=== PATIENT | male | born 1945 | race Caucasian/White ===

== ENCOUNTER 2017-01-18 11:08 | Outpatient (CLI) | payer MEDICARE, OTHER ==
[~2017-01-18] VITALS: Ht 172.7 cm; Wt 113.6 kg
--- NOTE | ~2017-01-18 | HEMODYNAMI ---
PATIENT:MICKEY TOMLINSON MEDICAL RECORD: [id number] : 49 LOCATION:[facility] ADMISSION DATE: 01/18/17 Generatedon:01/18/201715:44 Patient name: MICKEY TOMLINSON Patient #: [id number] SSN: [id number] : 1945 Date of study: 01/18/2017 Page: Of Hemodynamic Procedure Report Patient Data Patient Demographics Procedure consent was obtained First Name: MICKEY Gender: Male Last Name: BUSHRA : 1945 Patient #: [id number] Age: 71 year(s) Race: SSN: [id number] Additional ID: [id number] Contact details [address]: [address] [place] [address] State: [place] City: [place] Zip code: [address] Past Medical History Allergies Allergen Reaction Date Comments Reported Other allergy 01/18/2017 [facility] Admission Admission Data Admission Date: 01/18/2017 Admission Time: 11:08 Arrival Date: 01/18/2017 Arrival Time: 13:30 Admit Source: Other Insurance Payor: Medicare Height (in.): 68 BSA: 2.3 (m2) Height (cm.): 172.72 BMI: 40.14 (kg/m2) Weight (lbs.): 264 Weight (kg.): 119.75 Lab Results Lab Result Date: 01/18/2017 Lab Result Time: 0:00 Biochemistry Name Units Result Min Max BUN mg/dl 23 --(----)-* 7 18 Creatinine mg/dl 1.4 --(----)*- 0.6 1.3 CBC Name Units Result Min Max Hemoglobin g/dl 13.5 --(*---)-- 13.5 17.5 Procedure Procedure Types Cath Procedure Diagnostic Procedure LHC LHC w/Coronaries Miscellaneous Procedures Moderate Sedation up to 30 minutes Procedure Description Procedure Date Procedure Date: 01/18/2017 Procedure Start Time: 15:28 Procedure End Time: 15:43 Procedure Staff Name Function Zheng Coppola MD Performing Physician Viridiana Talley RT Scrub Desi Arreguin RN Nurse Angélica Del Valle RT Monitor Indication Abnormal stress Echo Procedure Data Cath Procedure Fluoroscopy Diagnostic fluoroscopy Total fluoroscopy Time: 3.3 time: 3.3 min min Diagnostic fluoroscopy Total fluoroscopy dose: 806 dose: 806 mGy mGy Contrast Material Contrast Material Type Amount (ml) Isovue 300 127 Entry Location Entry Primary Successful Side Size Upsize Upsize Entry Closure Succes sful Closure Location (Fr) 1 (Fr) 2 (Fr) Remarks Device Remarks Femoral Right 5 Fr Exoseal artery Estimated blood loss: 5 ml Diagnostic catheters Device Type Used For End Catheter Placement Cordis 5Fr JL 4.0 Left Coronary Catheter (MP) Angiography Cordis 5Fr 3DRC Catheter Right Coronary (MP) Angiography Diagnostic Infinity 5Fr Right Coronary AR MOD Catheter Angiography Cordis 5Fr Pigtail LV Angiography Catheter (MP) Procedure Complications No complications Procedure Medications Medication Administration Route Dosage Oxygen NC 2 l/min Heparin Flush Bag added to field 2 bags (1000units/500ml NS) Lidocaine 2% added to field 20 Fentanyl I.V. 50 mcg Versed I.V. 1 mg Fentanyl I.V. 50 mcg Versed I.V. 1 mg Hemodynamics Rest BSA: 2.3 (m2) HGB: 13.5 (g/dl) O2 Consumption: Estimated: 257.57 (ml/min) O2 Con sumption indexed: Estimated:111.99 (ml/min/m) Heart Rate: 60 (bpm) Pressure Samples Time Site Value (mmHg) Purpose Heart Use Rate(bpm) 15:37 LV 137/-28,3 Snapshot 61 15:38 AO 150/70(102) Pullback 61 15:38 LV 136/14,19 Pullback 61 Gradients Valve Time Site 1 Site 2 Mean SEP/DFP Peak To Heart Use (mmHg) (sec/min) Peak Rate (mmHg) (bpm) Aortic 15:38 LV AO 0 4 0 61 136/14,19 150/70(102) Calculations Valve P-P Mean Valve Index Valve Source Name Gradient Area Flow (cm2) Aortic 0 0 0 0 Snapshots Pre Cath Intra NCS Post Cath Vital Signs Time Heart Resp SPO2 NIBP (mmHg) Rhythm Pain Sedation Rate (ipm) (%) Status Level (bpm) 14:58:33 58 22 100 149/79(133) NSR 0 (11) 10(A) , No pain 15:02:57 60 25 100 152/76(132) NSR 0 (11) 10(A) , No pain 15:07:22 59 24 98 153/77(125) NSR 0 (11) 10(A) , No pain 15:11:46 59 25 99 143/77(121) NSR 0 (11) 10(A) , No pain 15:16:06 61 24 99 146/81(126) NSR 0 (11) 10(A) , No pain 15:20:26 60 24 99 154/80(130) NSR 0 (11) 9(A) , No pain 15:24:52 60 20 97 141/76(119) NSR 0 (11) 9(A) , No pain 15:29:13 58 21 98 143/77(127) NSR 0 (11) 9(A) , No pain 15:33:35 60 19 97 141/71(128) NSR 0 (11) 9(A) , No pain 15:37:55 61 20 98 141/75(118) NSR 0 (11) 9(A) , No pain 15:42:15 59 18 98 140/75(122) NSR 0 (11) 9(A) , No pain Medications Time Medication Route Dose Verified Delivered Reason Notes Effec tiveness by by 15:00:07 Oxygen NC 2 Desi Desi used for l/min Arreguin Arreguin inspection machine tender RN 15:00:13 Heparin Flush added 2 Desi Desi used for Bag to bags Arreguin Arreguin procedure (1000units/500ml field RN RN NS) 15:00:19 Lidocaine 2% added 20ml Desi Desi used for to vial Arreguin Arreguin procedure field RN RN 15:18:48 Fentanyl I.V. 50 Desi Desi for mcg Arreguin Arreguin sedation RN RN 15:18:53 Versed I.V. 1 mg Desi Desi for Arreguin Arreguin sedation RN RN 15:29:14 Fentanyl I.V. 50 Desi Desi for mcg Arreguin Arreguin sedation RN RN 15:29:16 Versed I.V. 1 mg Desi Desi for Arreguin Arreguin sedation RN oleomargarine maker Log Time Note 14:43:01 Informed consent obtained and on chart 14:43:09 Diagnostic Cath Status : Elective 14:43:31 Indication : Abnormal stress Echo 14:43:38 Desi Arreguin RN sent for patient. Start room use. 14:43:40 Time tracking: Regular hours 14:43:44 Plan of Care:Hemodynamics will remain stable., Cardiac rhythm will remain stable., Comfort level will be maintained., Respiratory function will remain adequate., Patient/ family verbilizes understanding of procedure., Procedure tolerated without complication., Recovers from procedure without complications.. 14:44:28 Admit Source: Other 14:44:35 Arrival Date: 01/18/2017 1:30:00 PM 14:44:55 Insurance Payor : Medicare 14:45:22 Patient Height : 172.72 cm 14:45:27 Patient Weight : 119.75 kg 14:50:19 Patient received from Pre/Post Procedure Room to CCL 2 Alert and oriented. Tansferred to table in Supine position. 14:50:20 Warm blankets applied, and zaria hugger turned on for patient comfort. 14:50:21 Correct patient and procedure confirmed by team. 14:50:21 ECG and BP/O2 sat monitors applied to patient. 14:57:20 Vital chart was started 14:57:21 Baseline sample Acquired. 14:57:25 Rhythm: sinus rhythm 14:57:26 Full Disclosure recording started 14:57:53 H&P Date Dictated: 12/29/2016 Within 30 days and on chart.. 14:57:55 Pre-procedure instructions explained to patient. 14:57:57 Family in waiting room. 14:57:58 Patient NPO since Midnight. 14:58:20 Patient allergic to Other allergyBystolic 14:58:25 Is the patient allergic to Iodine/contrast media? No. 14:58:27 Is patient on blood thinner?Yes 14:58:32 ACC The patient was administered the following blood thiners within the last 24 hours: Xarelto 14:58:34 Patient diabetic? No. 14:58:40 Snore? Yes 14:58:42 Sleep apnea? No 14:58:49 Dentures? No ? 14:59:29 Deviated septum? No 14:59:29 Opens mouth fully? Yes 14:59:30 Sticks out tongue? Yes 14:59:32 Airway obstruction? No ? 14:59:38 Pre procedure: right dorsailis pedis pulse 1+ Palpable, but thready & weak; easily obliterated 14:59:41 Patient pain scale 0/10 ?. 14:59:55 IV patent on arrival in left forearm with 0.9% NaCl at O. 15:00:07 Oxygen 2 l/min NC was administered by Desi Arreguin RN; used for procedure; 15:00:13 Heparin Flush Bag (1000units/500ml NS) 2 bags added to field was administered by Desi Arreguin RN; used for procedure; 15:00:19 Lidocaine 2% 20ml vial added to field was administered by Desi Arreguin RN; used for procedure; 15:03:18 Lab Result : BUN 23 mg/dl 15:03:18 Lab Result : Creatinine 1.4 mg/dl 15:03:18 Lab Result : Hemoglobin 13.5 g/dl 15:03:22 Lab results completed and on chart. 15:03:40 Right groin area was prepped with chlora-prep and draped in sterile fashion 15:03:41 Alarms reviewed by R. N. 15:03:41 Sharps counted by scrub and verified by R.N. 15:17:26 Physician arrived 15:17:26 --------ALL STOP TIME OUT------ 15:17:27 Final Timeout: patient, procedure, and site verified with staff and physician. All members of the team are in agreement. 15:17:28 Right groin site verified by team. 15:17:31 Physical assessment completed. ASA score P 2 - A patient with mild systemic disease as per Zheng Coppola MD. 15:17:35 Sedation plan: IV Moderate Sedation Versed, Fentanyl 15:17:48 Use device set Femoral Dx 15:17:49 Acist Syringe opened to sterile field. 15:17:50 Bag Decanter opened to sterile field. 15:17:50 Medline Cath Pack opened to sterile field. 15:17:50 Terumo 5Fr Arrey Sheath opened to sterile field. 15:17:51 St Raoul 260cm J .035 wire opened to sterile field. 15:17:53 Acist Hand Control opened to sterile field. 15:17:53 Acist Manifold opened to sterile field. 15:17:54 Diagnostic Infinity 5Fr Multipack catheter opened to sterile field. 15:17:54 Tegaderm 4 x 4 opened to sterile field. 15:18:48 Fentanyl 50 mcg I.V. was administered by Desi Arreguin RN; for sedation; 15:18:53 Versed 1 mg I.V. was administered by Desi Arreguin RN; for sedation; 15:20:51 Zero performed for pressure channel P1 15:27:51 Procedure started. 15:28:14 Local anesthetic to right femoral artery with Lidocaine 2% by Zheng Coppola MD.INITIAL ACCESS ONLY 15:28:22 A 5 Fr sheath was inserted into the Right Femoral artery 15:28:40 A Cordis 5Fr JL 4.0 Catheter (MP) was advanced over the wire and used for Left Coronary Angiography. 15:29:14 Fentanyl 50 mcg I.V. was administered by Desi Arreguin RN; for sedation; 15:29:16 Versed 1 mg I.V. was administered by Desi Arreguin RN; for sedation; 15:29:52 LCA angiography performed. 15:29:56 Injector settings: Ml/sec: 3, Volume: 6, 15:30:43 Catheter removed. 15:30:51 A Cordis 5Fr 3DRC Catheter (MP) was advanced over the wire and used for Right Coronary Angiography. 15:32:18 RCA angiography performed. 15:32:22 Injector settings: Ml/sec: 3, Volume: 6, 15:32:43 Bilateral carotid angiography performed. 15:35:09 Catheter removed. 15:35:41 A Diagnostic Infinity 5Fr AR MOD Catheter was advanced over the wire and used for Right Coronary Angiography. 15:37:00 RCA angiography performed. 15:37:03 Injector settings: Ml/sec: 3, Volume: 6, 15:37:08 Catheter removed. 15:37:13 A Cordis 5Fr Pigtail Catheter (MP) was advanced over the wire and used for LV Angiography. 15:37:59 LV hemodynamics recorded. 15:38:00 LV gram done using TALLEY 15:38:03 Injector settings: Ml/sec: 5, Volume: 15, 15:38:13 EF : 55 % 15:38:24 Catheter removed. 15:40:27 Cordis 5Fr Exoseal opened to sterile field. 15:40:42 Sheath removed intact; hemostasis achieved with Exoseal to the Right Femoral artery. 15:40:44 Procedure ended.(Physican Out) 15:40:54 Fluoroscopy time 03.30 minutes. 15:41:40 Fluoroscopy dose: 806 mGy 15:41:40 Flurop Dose total: 806 15:42:11 Contrast amount:Isovue 300 127ml. 15:42:15 Sharps counted by scrub and verified by R.N. 15:42:17 Insertion/operative site no bleeding no hematoma. 15:42:19 Post-op/insertion site Right Femoral artery dressed using a 4 x 4 and Tegaderm. 15:42:22 Post right femoral artery:stable 15:42:23 Post Procedure Pulses reassessed and unchanged 15:42:26 Post procedure rhythm: unchanged. 15:42:28 Estimated blood loss: 5 ml 15:42:31 Post procedure instruction explained to patient.Patient verbalizes understanding. 15:42:33 Patient needs reinforcement of post procedure teaching. 15:43:19 Procedure type changed to Cath procedure, Diagnostic procedure, LHC, LHC w/Coronaries, Miscellaneous Procedures, Moderate Sedation up to 30 minutes 15:43:20 Procedure and supply charges have been captured, reviewed, submitted and are correct. 15:43:25 Procedure Complication : No complications 15:43:27 Vital chart was stopped 15:43:27 See physician's report for complete and final results. 15:43:30 Report given to Pre/Post Procedure Room. 15:43:33 Patient transfered to Pre/Post Procedure Room with Stretcher. 15:43:36 Procedure ended. 15:43:36 Full Disclosure recording stopped 15:43:39 End room use (Document Last) Device Usage Item Name Manufacture Quantity Catalog Hospital Part Current Minimal Lo t# / Number Charge Number Stock Stock Serial# Code Acist Acist 1 [id number] [id number] 345349 [id number] 20 Syringe [employer] Inc Bag Microtek 1 2002S 745827 98569 582830 5 Dec[employer] Medline Cardinal 1 [id number] 538860 69922 788838 5 Cath Pack General [employer] Terumo 5Fr Terumo 1 [id number] 544492 444494 628613 [address] Raoul St Raoul 1 [id number] 273416 148185 978426 30 260cm J .035 wire Acist Hand Acist 1 34202 865500 857439 418239 5 Control [employer] Inc Acist Acist 1 25084 464426 828761 663672 5 Manifold Medical [employer] Inc Diagnostic Cardinal 1 [id number] 563343 37214 596280 30 Infinity Health 5Fr Multipack catheter Tegaderm 4 3M 1 1626W 031855 498296 487765 5 x 4 Cordis 5Fr Cardinal 1 125389 5 JL 4.0 Health Catheter (MP) Cordis 5Fr Cardinal 1 107398 5 3DRC Health Catheter (MP) Diagnostic Cardinal 1 [id number] 157444 088683 625159 15 Infinity Health 5Fr AR MOD Catheter Cordis 5Fr Cardinal 1 461656 5 Pigtail Health Catheter (MP) Cordis 5Fr Cardinal 1 EX500 617868 895433 885159 10 aaTag Signature Audit [place] Stage Time Signature Unsigned Intra-Procedure 01/18/2017 Angélica Del Valle 3:44:46 PM RT(R) Signatures Monitor : Angélica Del Valle RT Signature : Date : Time : [facility] [address] [place] [address]
[~2017-01-18 11:08] MED LIST: BYDUREON P2 MG/0.65 SC; HYDROCODONE-APA1 TAB PO; HYZAAR 50-12.51 TAB PO; JANUMET 50-5001 TAB PO; TOPROL XL50 MG PO; XARELTO20 MG PO; ZOCOR20 MG PO
[2017-01-18 11:46] VITALS: BP 138/66; Ht 172.7 cm; Wt 113.6 kg
[2017-01-18 12:02] LABS: BASOPHILS 0.4 % (0-2); HEMOGLOBIN 13.5 g/dL (13.5-17.5); IMMATURE GRANULOCYTES 0.3 % (0-5); LYMPHOCYTES 21.3 % (15-50); MCH 27.7 pg (26.0-34.0); MCHC 32.1 g/dL (31.0-37.0); MCV 86.1 fL (80.0-100.0); MEAN PLATELET VOLUME 9.3 fL (7.4-10.4); MONOCYTES 6.8 % (2-11); NEUTROPHILS 69.2 % (40-80); PLATELET COUNT 193 10x3/uL (130-400); RBC 4.88 10x6/uL (4.20-6.10); RDW 13.2 % (11.5-14.5); WBC 7.7 10x3/uL (4.8-10.8)
[2017-01-18 12:22] LABS: ANION GAP 13.1 mmol/L (8-16); CALCIUM 8.6 mg/dL (8.5-10.1); CREATININE - SERUM 1.4 mg/dL (0.6-1.3); POTASSIUM - SERUM 4.1 mmol/L (3.5-5.1)
--- NOTE | 2017-01-18 16:15 | NUR ---
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 RIGHT GROIN DRESSING IS CDI, AREA IS SOFT AND NONTENDER. PEDAL PULSES PALPABLE, CAP REFILL IS BRISK. AT BEDSIDE. PT DENIES NEEDS AT THIS TIME. 1615 RIGHT GROIN DRESSING CDI, AREA IS SOFT AND NONTENDER. VSS, WILL CONTINUE TO MONITOR
--- NOTE | 2017-01-18 17:28 | NUR ---
1715 SANDWICH TRAY HAS BEEN SERVED, PT DENIES ANY C/O. DRESSING TO RIGHT GROIN REMAINS CDI, AREA IS SOFT AND NONTENDER.
--- NOTE | 2017-01-18 18:17 | NUR ---
1800 IV DC'D WITH CATH INTACT. RIGHT GROIN DRESSING REMAINS CDI, NO BLEEDING OR HEMATOMA NOTED. PT DENIES ANY C/O CHEST PAIN OR NAUSEA. HAS ROSA SANDWICH AND PO FLUIDS. HAS VOIDED 400 CC CLEAR YELLOW URINE, USING URINAL.
--- NOTE | 2017-01-18 18:38 | NUR ---
1820 DC INSTRUCTIONS REVIEWED AND PT VERBALIZES UNDERSTANDING. PT ESCORTED TO PRIVATE AUTO VIA WC BY STAFF WITH DRIVING HIM HOME.
--- NOTE | 2017-01-20 12:53 | OP ---
PATIENT NAME: MICKEY TOMLINSON MEDICAL RECORD: [id number] :49 LOCATION:D.CAT ADMISSION DATE: SURGEON: MARY ELLEN LEAVITT MD DATE OF OPERATION: 01/18/2017 PROCEDURE: Left heart catheterization, selective coronary angiography, 4-vessel arteriography, right femoral artery approach. CATHETERS: A 5-Georgian sheath, 5/4 left and right Rola, 5/4 pig. The procedure was well tolerated and the patient returned to flores. Sheath removed. Adequate hemostasis was obtained. FINDINGS: Left ventriculography 30-degree TALLEY view showed mild global hypokinesis. Overall, LV function, lower limits of normal, mildly reduced at 45%. CORONARY ANATOMY: LEFT MAIN: Left main is free of disease. LAD: The LAD shows a tight stenosis at 90% with good target distally. CIRCUMFLEX: Circumflex shows a stenosis at first OM, have 80%, best seen in the TALLEY caudal view. RIGHT CORONARY ARTERY: Shows a tight stenosis at the mid portion with good target distally. IMPRESSION: Multivessel coronary artery disease, given diabetes, etc., suspect to do better long-term with coronary artery bypass grafting and referred to Dr. Arciniega for this purpose. Four-vessel arteriography: Using an underlying sheath, JR diagnostic catheter was used starting with the right system. Right system: Right common carotid shows no obstructive disease. Right external carotid, smooth-walled vessel, free of disease. Right internal carotid, smooth-walled vessel, free of disease. Left system: Left common carotid, smooth-walled vessel, free of disease. Left internal carotid shows some wall disease, no stenosis greater than 10%. Left external carotid, smooth-walled vessel, free of disease. IMPRESSION: Minimal disease on both carotid systems. TRANSINT:[id number] Voice Confirmation ID: [id number] DOCUMENT ID: [id number] MARY ELLEN LEAVITT MD at 1253 CC: [id number] DICTATION DATE: 01/18/17 1548 COMMUNICATIONS AGENT: 01/19/17 0141 DEP CLI 01/18/17 [facility] [address] [facility] [place] [address]
== END 2017-01-18 18:20 | disposition home or self-care (01) ==
LOC: D.CATH 11:08
PROVIDERS: Internal Medicine Interventional Cardiology
DX: I25.10 Atherosclerotic heart disease of native coronary artery without angina pectoris (principal); E11.9 Type 2 diabetes mellitus without complications; R94.39 Abnormal result of other cardiovascular function study; Z01.812 Encounter for preprocedural laboratory examination

== ENCOUNTER → 2017-01-25 13:55 | Outpatient (CLI) | payer MEDICARE, OTHER ==
[2017-01-18 11:46] VITALS: BMI 38.1
[2017-01-26 07:27] LABS: HEPATITIS C ANTIBODY >11.0 (0.0-0.9)
== END | disposition home or self-care (01) ==
LOC: D.LAB 13:55
PROVIDERS: Internal Medicine Cardiovascular Disease
DX: I65.29 Occlusion and stenosis of unspecified carotid artery (principal); Z01.812 Encounter for preprocedural laboratory examination

== ENCOUNTER → 2017-01-31 09:45 | Outpatient (CLI) | payer MEDICARE, OTHER ==
[2017-01-18 11:46] VITALS: BMI 38.1
== END | disposition home or self-care (01) ==
LOC: D.LAB 09:45
DX: B19.20 Unspecified viral hepatitis C without hepatic coma (principal)

== ENCOUNTER 2017-02-10 08:09 | Outpatient (CLI) | payer MEDICARE, OTHER ==
[~2017-02-10] VITALS: Ht 172.7 cm; Wt 118.2 kg
--- NOTE | ~2017-02-10 | HEMODYNAMI ---
PATIENT:MICKEY TOMLINSON MEDICAL RECORD: [id number] : 49 LOCATION:DMIRACLE ADMISSION DATE: 02/10/17 Generatedon:02/10/201712:16 Patient name: MICKEY TOMLINSON Patient #: [id number] SSN: [id number] : 1945 Date of study: 02/10/2017 Page: Of Hemodynamic Procedure Report Patient Data Patient Demographics Procedure consent was obtained First Name: MICKEY Gender: Male Last Name: BUSHRA : 1945 Patient #: [id number] Age: 71 year(s) Race: SSN: [id number] Additional ID: [id number] Contact details [address]: [address] [place] [address] State: [place] City: [place] Zip code: [address] Past Medical History Allergies Allergen Reaction Date Comments Reported Other allergy 01/18/2017 [facility] Admission Admission Data Admission Date: 02/10/2017 Admission Time: 8:09 Height (in.): 68 BSA: 2.29 (m2) Height (cm.): 172.72 BMI: 39.53 (kg/m2) Weight (lbs.): 260 Weight (kg.): 117.93 Lab Results Lab Result Date: 02/10/2017 Lab Result Time: 0:00 Biochemistry Name Units Result Min Max CK-MB ng/ml 0.3 --(*---)-- 0 3.6 Creatinine mg/dl 1.3 --(---*)-- 0.6 1.3 Creatinine l 47 --(*---)-- 21 215 Kinase Troponin l ng/ml 0.017 --(-*--)-- 0 0.06 CBC Name Units Result Min Max Hemoglobin g/dl 12.5 *-(----)-- 13.5 17.5 Procedure Procedure Types Cath Procedure PCI Procedure Coronary Stent Initial Miscellaneous Procedures Moderate Sedation up to 30 minutes Procedure Description Procedure Date Procedure Date: 02/10/2017 Procedure Start Time: 12:03 Procedure End Time: 12:16 Procedure Staff Name Function Russ Hall MD Performing Physician Viridiana Talley RT Scrub Eden Pan RN Nurse Shruti Foster RT Monitor Riki Cope RN Eyeglass Frames Inspector Procedure Data Cath Procedure Fluoroscopy Diagnostic fluoroscopy Total fluoroscopy Time: 1.6 time: 1.6 min min Diagnostic fluoroscopy Total fluoroscopy dose: 256 dose: 256 mGy mGy Contrast Material Contrast Material Type Amount (ml) Isovue 300 30 Entry Location Entry Primary Successful Side Size Upsize Upsize Entry Closure Succes sful Closure Location (Fr) 1 (Fr) 2 (Fr) Remarks Device Remarks Femoral Right 6 Fr Exoseal artery Short Estimated blood loss: 5 ml Procedure Complications No complications Procedure Medications Medication Administration Route Dosage Oxygen NC 2 l/min Lidocaine 2% added to field 20 Heparin Flush Bag added to field 2 bags (1000units/500ml NS) 0.9% NaCl I.V. 100 ml/hr Versed I.V. 1 mg Fentanyl I.V. 50 mcg Versed I.V. 1 mg Fentanyl I.V. 50 mcg Heparin Bolus I.V. 4000 units Versed I.V. 1 mg Fentanyl I.V. 50 mcg Versed I.V. 1 mg Fentanyl I.V. 50 mcg Hemodynamics Rest BSA: 2.29 (m2) HGB: 12.5 (g/dl) O2 Consumption: Estimated: 262.7 (ml/min) O2 Con sumption indexed: Estimated:114.72 (ml/min/m) Heart Rate: 67 (bpm) Snapshots Pre Cath Intra NCS Post Cath Vital Signs Time Heart Resp SPO2 NIBP (mmHg) Rhythm Pain Sedation Rate (ipm) (%) Status Level (bpm) 11:28:08 67 22 100 147/78(113) NSR 0 (11) 10(A) , No pain 11:32:30 64 18 100 142/78(105) NSR 0 (11) 10(A) , No pain 11:36:53 65 24 99 139/72(111) NSR 0 (11) 10(A) , No pain 11:41:13 67 16 95 130/71(109) NSR 0 (11) 10(A) , No pain 11:45:31 66 18 95 132/71(108) NSR 0 (11) 10(A) , No pain 11:49:51 65 18 97 132/67(107) NSR 0 (11) 10(A) , No pain 11:54:07 67 17 95 131/71(100) NSR 0 (11) 10(A) , No pain 11:58:25 66 21 96 131/72(103) NSR 0 (11) 10(A) , No pain 12:02:47 67 17 96 126/64(97) NSR 0 (11) 9(A) , No pain 12:07:05 66 16 94 127/70(92) NSR 0 (11) 9(A) , No pain 12:11:25 74 17 96 125/67(98) NSR 0 (11) 9(A) , No pain 12:15:41 66 18 96 123/73(93) NSR 0 (11) 10(A) , No pain Medications Time Medication Route Dose Verified Delivered Reason Notes Effectiveness by by 11:26:26 Oxygen NC 2 Russ Buffie used for l/min Isabel Pan RN procedure 11:26:32 Lidocaine 2% added 20ml Russ Russ for local to vial Isabel Hall MD anesthetic field 11:26:38 Heparin Flush added 2 Russ Russ used for Bag to bags Isabel Hall MD procedure (1000units/500ml field NS) 11:26:48 0.9% NaCl I.V. 100 Russ Buffie Per physician ml/hr Isabel Pan RN 11:50:53 Versed I.V. 1 mg Russ Buffie for sedation Isabel Pan RN 11:50:59 Fentanyl I.V. 50 Russ Buffie for sedation mcg Isabel Pan RN 12:00:00 Versed I.V. 1 mg Russ Buffie for sedation Isabel Pan RN 12:00:04 Fentanyl I.V. 50 Russ Buffie for sedation mcg Isabel Pan RN 12:04:43 Versed I.V. 1 mg Russ Buffie for sedation Isabel Pan RN 12:04:47 Fentanyl I.V. 50 Russ Buffie for sedation mcg Isabel Pan RN 12:06:26 Heparin Bolus I.V. 4000 Russ Buffie for verifi ed units Isabel Pan RN anticoagulation with dr hall 12:10:50 Versed I.V. 1 mg Russ Buffie for sedation Isabel Pan RN 12:10:54 Fentanyl I.V. 50 Russ Harmon for sedation mcg Isabel Pan RN Procedure Log Time Note 11:05:20 Riki Cope RN sent for patient. Start room use. 11:09:32 Time tracking: Regular hours 11:09:36 Plan of Care:Hemodynamics will remain stable., Cardiac rhythm will remain stable., Comfort level will be maintained., Respiratory function will remain adequate., Patient/ family verbilizes understanding of procedure., Procedure tolerated without complication., Recovers from procedure without complications.. 11:17:29 Patient received from Pre/Post Procedure Room to [facility] 2 Alert and oriented. Tansferred to table in Supine position. 11:17:30 Warm blankets applied, and zaria hugger turned on for patient comfort. 11:17:30 Correct patient and procedure confirmed by team. 11:17:31 Signed procedure consent form obtained from patient. 11:17:32 ECG and BP/O2 sat monitors applied to patient. 11:17:33 Full Disclosure recording started 11:26:26 Oxygen 2 l/min NC was administered by Eden Pan RN; used for procedure; 11:26:32 Lidocaine 2% 20ml vial added to field was administered by Russ Hall MD; for local anesthetic; 11:26:38 Heparin Flush Bag (1000units/500ml NS) 2 bags added to field was administered by Russ Hall MD; used for procedure; 11:26:48 0.9% NaCl 100 ml/hr I.V. was administered by Eden Pan RN; Per physician; 11:26:53 Vital chart was started 11:29:03 Baseline sample Acquired. 11:29:06 Rhythm: sinus rhythm 11:29:18 H&P Date Dictated: 02/02/2017 Within 30 days and on chart., H&P Addendum completed by physician on day of procedure. (MUST COMPLETE FOR ALL OUTPATIENTS). 11:29:19 Pre-procedure instructions explained to patient. 11:29:20 Pre-op teaching completed and patient verbalized understanding. 11:29:21 Family in waiting room. 11:29:23 Patient NPO since Midnight. 11:29:33 Is the patient allergic to Iodine/contrast media? No. 11:29:34 Is patient on blood thinner?Yes 11:29:38 ACC The patient was administered the following blood thiners within the last 24 hours: ACCPlavix 11:29:46 Patient diabetic? Yes. 11:29:47 If diabetic: On Metformin? Yes 11:30:46 If on Metformin: Last Dose? 02/07/2017 11:30:50 Previous problem with sedation/anesthesia? No ? 11:30:52 Snore? Yes 11:30:55 Sleep apnea? No 11:30:56 Deviated septum? No 11:30:57 Opens mouth fully? Yes 11:30:57 Sticks out tongue? Yes 11:30:59 Airway obstruction? No ? 11:31:01 Dentures? No ? 11:31:04 Pre procedure: right dorsailis pedis pulse 2+ Normal; easily identifiable; not easily obliterated 11:31:06 Modified Aldair's test Ulnar < 7 seconds 11:31:07 Patient pain scale 0/10 ?. 11:31:11 IV patent on arrival in left hand with 0.9% NaCl at [facility]. 11:34:49 Lab Result : Creatinine 1.3 mg/dl 11:34:49 Lab Result : CK-MB 0.3 ng/ml 11:34:49 Lab Result : Creatinine Kinase 47 l 11:34:49 Lab Result : Troponin l 0.017 ng/ml 11:34:49 Lab Result : Hemoglobin 12.5 g/dl 11:34:53 Lab results completed and on chart. 11:34:58 Right Radial & Right Groin area was prepped with chlora-prep and draped in sterile fashion 11:34:58 Alarms reviewed by R. N. 11:34:59 Sharps counted by scrub and verified by R.N. 11:35:02 Use device set Radial PCI 11:35:03 Acist Syringe opened to sterile field. 11:35:03 Acist Hand Control opened to sterile field. 11:35:03 Bag Decanter opened to sterile field. 11:35:04 Medline Cath Pack opened to sterile field. 11:35:04 Merit BasixCompak Inflation Kit opened to sterile field. 11:35:05 Acist Manifold opened to sterile field. 11:35:06 Tegaderm 4 x 4 opened to sterile field. 11:35:07 St Raoul 260cm J .035 wire opened to sterile field. 11:35:48 Patient Height : 172.72 cm 11:35:50 Patient Weight : 117.93 kg 11:39:32 Zero performed for pressure channel P1 11:44:22 Final Timeout: patient, procedure, and site verified with staff and physician. All members of the team are in agreement. 11:44:26 Right Radial site verified by team. 11:44:29 Physical assessment completed. ASA score P 2 - A patient with mild systemic disease as per Russ Hall MD. 11:44:33 Sedation plan: IV Moderate Sedation Versed, Fentanyl 11:48:03 Ranchita Sci PT Graphix J 300cm 0.014 guide wire opened to sterile field. 11:50:53 Versed 1 mg I.V. was administered by Eden Pan RN; for sedation; 11:50:59 Fentanyl 50 mcg I.V. was administered by Eden Pan RN; for sedation; 12:00:00 Versed 1 mg I.V. was administered by Eden Pan RN; for sedation; 12:00:04 Fentanyl 50 mcg I.V. was administered by Eden Pan RN; for sedation; 12:03:47 Procedure started. 12:03:50 Local anesthetic to right femoral artery with Lidocaine 2% by Russ Hall MD.INITIAL ACCESS ONLY 12:04:03 Medtronic Launcher 6Fr AL 2.0 guide catheter opened to sterile field. 12:04:04 Terumo 6Fr Traver Sheath opened to sterile field. 12:04:43 Versed 1 mg I.V. was administered by Eden Pan RN; for sedation; 12:04:47 Fentanyl 50 mcg I.V. was administered by Eden Pan RN; for sedation; 12:05:22 A 6 Fr Short sheath was inserted into the Right Femoral artery 12:06:26 Heparin Bolus 4000 units I.V. was administered by Eden Pan RN; for anticoagulation; verified with dr hall 12:06:34 6 Fr AL 2.0 guide catheter was inserted over the wire 12:07:21 Graphix wire advanced. 12:09:10 Inflation Number: 1 A Biofreedom 3.0 x 18 stent (No Cost Implant) was prepped and advanced across the Mid RCA. The stent was deployed at 11 ALIDA for 0:09 (min:sec). 12:09:24 Stent catheter was removed intact over wire. 12:09:24 Wire removed. 12:09:25 Guide catheter removed. 12:09:43 Cordis 6Fr Exoseal opened to sterile field. 12:09:53 Sheath removed intact; hemostasis achieved with Exoseal to the Right Femoral artery. 12:09:56 Procedure ended.(Physican Out) 12:10:50 Versed 1 mg I.V. was administered by Eden Pan RN; for sedation; 12:10:54 Fentanyl 50 mcg I.V. was administered by Eden Pan RN; for sedation; 12:11:41 Fluoroscopy time 01.60 minutes. 12:11:44 Flurop Dose total: 256 12:11:44 Fluoroscopy dose: 256 mGy 12:11:47 Contrast amount:Isovue 300 30ml. 12:11:49 Sharps counted by scrub and verified by R.N. 12:11:50 Insertion/operative site no bleeding no hematoma. 12:11:57 Post-op/insertion site Right Femoral artery dressed using a 4 x 4 and Tegaderm. 12:12:00 Post right femoral artery:stable, clean and dry 12:12:01 Post Procedure Pulses reassessed and unchanged 12:12:05 Post-procedure physical assessment completed. ASA score P 2 - A patient with mild systemic disease as per Russ Hall MD. 12:12:08 Post procedure rhythm: unchanged. 12:12:10 Estimated blood loss: 5 ml 12:12:12 Post procedure instruction explained to patient.Patient verbalizes understanding. 12:12:12 Patient needs reinforcement of post procedure teaching. 12:12:29 Procedure type changed to Cath procedure, PCI procedure, Coronary Stent Initial, Miscellaneous Procedures, Moderate Sedation up to 30 minutes 12:12:35 Procedure Complication : No complications 12:12:36 See physician's report for complete and final results. 12:13:19 Procedure and supply charges have been captured, reviewed, submitted and are correct. 12:15:59 Vital chart was stopped 12:16:01 Report given to Pre/Post Procedure Room. 12:16:03 Patient transfered to Pre/Post Procedure Room with Stretcher. 12:16:06 Procedure ended. 12:16:06 Full Disclosure recording stopped 12:16:12 End room use (Document Last) Intervention Summary Intervention Notes Time ActionType Lesion and Equipment Action# Pressure Duration Attributes Used 12:09:10 Place stent Mid RCA Biofreedom 1 11 00:09 3.0 x 18 stent (No Cost Implant) Device Usage Item Name Manufacture Quantity Catalog Number Hospital Part Current [facility] al Lot# / Charge Number Stock Stock Serial# Code Acist Acist 1 04601 670466 840430 505752 20 Syringe Medical Systems Inc Acist Hand Acist 1 03620 804032 877507 654901 5 Control Medical Systems Inc Bag Microtek 1 2002S 112482 32178 083177 5 Decanter Medical Inc. Medline Cardinal 1 [id number] 282184 40984 654060 5 Cath Glowforth [facility] Merit 1 [id number] 119168 751462 465170 15 [email or web address] Medical Inflation Kit Acist Acist 1 57243 322676 096594 073543 5 Manifold Medical Systems Inc Tegaderm 4 3M 1 1626W 173235 032543 028643 [address] Raoul 1 889781 581069 461095 375180 30 260cm J .035 wire Ranchita Sci Ranchita 1 [id number] 575278 480168 085586 5 PT Graphix Scientific J 300cm 0.014 guide wire Medtronic Medtronic 1 [id number] 800746 39050 672712 1 Launcher 6Fr AL 2.0 guide catheter Terumo 6Fr Terumo 1 [id number] 536508 561862 904418 40 Traver Sheath Terumo 6Fr Terumo 1 [id number] 415496 966393 081236 40 Slender Glidesheath Biofreedom Biosensors 1 [facility]2-3018 548411 008219 5 [id number] 3.0 x 18 [place] SA stent (No Cost Implant) Cordis 6Fr Cardinal 1 EX600 476817 280018 192901 10 UZwan Signature Audit [place] Stage Time Signature Unsigned Intra-Procedure 02/10/2017 Shruti 12:16:21 PM Counts RT(R) Signatures Monitor : Shruti Signature : Counts RT Date : Time : [id number] [place] [address]
[2017-02-10] MEDS ORDERED: PLAVIX75 MG PO (08:57)
[2017-02-10] MEDS ORDERED: BAYER CHEWABLE81 MG PO (08:58)
[2017-02-10 09:01] VITALS: BP 128/69; Ht 172.7 cm; Wt 118.2 kg
[2017-02-10 09:01] LABS: BASOPHILS 0.6 % (0-2); EOSINOPHILS 2.8 % (0-7); HEMATOCRIT 38.9 % (42.0-54.0); HEMOGLOBIN 12.5 g/dL (13.5-17.5); IMMATURE GRANULOCYTES 0.3 % (0-5); LYMPHOCYTES 20.2 % (15-50); MCH 27.8 pg (26.0-34.0); MCHC 32.1 g/dL (31.0-37.0); MCV 86.6 fL (80.0-100.0); MEAN PLATELET VOLUME 9.3 fL (7.4-10.4); MONOCYTES 6.7 % (2-11); NEUTROPHILS 69.4 % (40-80); PLATELET COUNT 190 10x3/uL (130-400); RBC 4.49 10x6/uL (4.20-6.10); RDW 14.2 % (11.5-14.5); WBC 6.8 10x3/uL (4.8-10.8)
[2017-02-10 09:28] LABS: CALCIUM 8.5 mg/dL (8.5-10.1); CARBON DIOXIDE 25.9 mmol/L (21.0-32.0); CHLORIDE - SERUM 106 mmol/L (98-107); CKMB 0.3 U/L (0.0-3.6); CREATINE KINASE 47 UL (21-232); CREATININE - SERUM 1.3 mg/dL (0.6-1.3); POTASSIUM - SERUM 3.8 mmol/L (3.5-5.1); SODIUM 140 mmol/L (136-145); UREA NITROGEN 20 mg/dL (7-18); eGFR NON AFRICAN AMERICAN 58 mL/min (90-120)
[2017-02-10 09:36] LABS: CALC OSMOLALITY 287 mosm/kg (275-300); GLUCOSE 203 mg/dL (74-106); TROPONIN-I < 0.017 ng/mL (0.000-0.060)
--- NOTE | 2017-02-10 12:45 | NUR ---
RIGHT GROIN CDI, NO HEMATOMA OR BLEEDING NOTED AT SITE, SOFT TO TOUCH, DENIES CHEST PAIN OR NEEDS AT THIS TIME, LEFT FOR LUNCH
--- NOTE | 2017-02-10 13:15 | NUR ---
RIGHT GROIN CDI, NO HEMATOMA OR BLEEDING NOTED, SOFT TO TOUCH, DENIES PAIN OR NEEDS
--- NOTE | 2017-02-10 15:25 | NUR ---
LAB RESULT CALLED TO DR BHAT-NO NEW ORDERS
--- NOTE | 2017-02-11 08:33 | PRO ---
PATIENT:MICKEY TOMLINSON MEDICAL RECORD: [id number] : 49 LOCATION:D.CAT ADMISSION DATE: 02/10/17 PROCEDURE PERFORMED BY: EMANI BHAT MD PROCEDURE DATE: 02/10/17 PROCEDURES: 1. PTCA stent RCA. 2. Selective coronary angiography. INDICATION: 1. Angina. 2. Coronary artery disease. PROCEDURE IN DETAIL: After informed consent was obtained and after detailed explanation of risks, benefits, as well as alternative therapies, the patient elected to proceed with angiogram and angioplasty. The right femoral area was prepped and draped in a normal sterile fashion. The right femoral artery was cannulated via modified Seldinger technique with placement of 6-Tongan sheath. All catheters exchanged through this sheath. FINDINGS: The right coronary artery has a 90% stenosis in the mid vessel. This was addressed with a 3.0 X 18 millimeter BioFreedom stent. The lesion was a 15 millimeter lesion in a 3.0 vessel with TAURUS 3 flow before and after the intervention. The result was 0% residual stenosis. OVERALL IMPRESSION: Successful percutaneous transluminal coronary angioplasty stent of the right coronary artery going from 90% initial stenosis to 0% residual stenosis. EMANI HBAT MD at 0833 CC: [id number] DICTATION DATE: 02/10/172134 [employer] OPERATOR: ALISIA 02/10/172134 DEP BENJA 02/10/17 [facility] [address] [place] [address]
== END 2017-02-10 16:25 | disposition home or self-care (01) ==
LOC: D.CATH 08:09
PROVIDERS: Internal Medicine Interventional Cardiology
DX: I25.119 Atherosclerotic heart disease of native coronary artery with unspecified angina pectoris (principal); Z00.6 Encounter for examination for normal comparison and control in clinical research program; Z01.812 Encounter for preprocedural laboratory examination

== ENCOUNTER 2017-02-14 08:07 | Outpatient (CLI) | payer MEDICARE, OTHER ==
[~2017-02-14] VITALS: Ht 172.7 cm; Wt 118.2 kg
--- NOTE | ~2017-02-14 | HP ---
PATIENT: MICKEY TOMLINSON MEDICAL RECORD: [id number] ACCOUNT: [id number] LOCATION:OLIVE : 49 ADMISSION DATE: 02/14/17 HISTORY AND PHYSICAL EXAMINATION PROBLEM LIST: 1. Angina. 2. Coronary artery disease. 3. Recent percutaneous transluminal coronary angioplasty stent right coronary artery with concomitant disease of the left circumflex and left anterior descending. 4. Hepatitis C. 5. Hypertension. 6. Hyperlipidemia. HISTORY OF PRESENT ILLNESS: Mr. Tomlinson presented with anginal symptomatology and was found to have three vessel coronary artery disease and underwent evaluation for bypass surgery. He was turned down due to hepatitis C. He was brought back for percutaneous transluminal coronary angioplasty stent of the right coronary artery last week. This went well. He is now brought back for percutaneous transluminal coronary angioplasty stent of the left side in a staged fashion. PHYSICAL EXAMINATION: HEAD, EYES, EARS, NOSE, AND THROAT: Benign. NECK: Supple. No jugular venous distention. Carotid upstroke plus two bilaterally without bruits. LUNGS: Overall clear to auscultation and percussion. HEART: Regular. Normal S1, normal S2. No S3, no S4. No murmurs. BONES, JOINTS, EXTREMITIES: No clubbing, cyanosis, or edema. OVERALL IMPRESSION: Anginal symptomatology with significant disease of the left. Will proceed with percutaneous transluminal coronary angioplasty stent of the left. EMANI BHAT MD CC: [id number] DICTATION DATE: 02/14/17 1200 ASSOCIATE PROFESSOR OF RADIOLOGY: DM 02/15/17 0857 DEP CLI 02/14/17 [id number] [place] [address]
--- NOTE | ~2017-02-14 | OP ---
PATIENT NAME: MICKEY TOMLINSON MEDICAL RECORD: [id number] :49 LOCATION:D.CAT ADMISSION DATE: SURGEON: EMANI BHAT MD OPERATION DATE: 02/14/17 PROCEDURES: 1. Percutaneous transluminal coronary angioplasty stent left circumflex. 2. Percutaneous transluminal coronary angioplasty stent left anterior descending. 3. Selective coronary angiography. INDICATION: 1. Angina. 2. Coronary artery disease. PROCEDURE IN DETAIL: After informed consent was obtained and after detailed explanation of risks, benefits, as well as alternative therapies, the patient elected to proceed with angiography and angioplasty. The right femoral area was prepped and draped in a normal sterile fashion. The right femoral artery was cannulated via modified Seldinger technique with placement of 6-Martiniquais sheath. All catheters exchanged through this sheath. FINDINGS: PTCA STENT TO THE LEFT CIRCUMFLEX: The left circumflex has a 90% stenosis in the mid vessel. This was addressed with a 2.25 X 24 millimeter BioFreedom stent. This lesion was a 22 millimeter lesion in a 2.25 millimeter vessel. There was TAURUS 3 flow before and after the intervention . The result was 0% residual stenosis. PTCA STENT TO THE LEFT ANTERIOR DESCENDING: The left anterior descending has 90% stenosis proximally. This was addressed with a 3.0 X 14 millimeter BioFreedom stent. This was a 12 millimeter lesion. TAURUS 3 flow before and after the intervention in a 3.0 vessel. The result was 0% residual stenosis. OVERALL IMPRESSION: Successful percutaneous transluminal coronary angioplasty stent of the left circumflex and left anterior descending both going from 90% initial stenosis to 0% residual stenosis. EMANI BHAT MD CC: [id number] DICTATION DATE: 02/14/17 1400 DIRECTOR OF NURSING: DM 02/15/17 0902 DEP CLI 02/14/17 [address] [id number]
--- NOTE | ~2017-02-14 | HEMODYNAMI ---
PATIENT:MICKEY TOMLINSON MEDICAL RECORD: [id number] : 49 LOCATION:[facility] ADMISSION DATE: 02/14/17 Generatedon:02/14/201710:17 Patient name: MICKEY TOMLINSON Patient #: [id number] SSN: [id number] : 1945 Date of study: 02/14/2017 Page: Of Hemodynamic Procedure Report Patient Data Patient Demographics Procedure consent was obtained First Name: MICKEY Gender: Male Last Name: BUSHRA : 1945 Patient #: [id number] Age: 71 year(s) Race: SSN: [id number] Additional ID: [id number] Contact details [address]: [address] [place] [address] State: [place] City: [place] Zip code: [address] Past Medical History Allergies Allergen Reaction Date Comments Reported Other allergy 01/18/2017 [facility] Admission Admission Data Admission Date: 02/14/2017 Admission Time: 8:07 Lab Results Lab Result Date: 02/10/2017 Lab Result Time: 0:00 Biochemistry Name Units Result Min Max CK-MB ng/ml 0.3 --(*---)-- 0 3.6 Creatinine mg/dl 1.3 --(---*)-- 0.6 1.3 Creatinine l 47 --(*---)-- 21 215 Kinase Troponin l ng/ml 0.017 --(-*--)-- 0 0.06 CBC Name Units Result Min Max Hemoglobin g/dl 12.5 *-(----)-- 13.5 17.5 Procedure Procedure Types Cath Procedure PCI Procedure Coronary Stent Initial x2 Miscellaneous Procedures Moderate Sedation up to 15 minutes Procedure Description Procedure Date Procedure Date: 02/14/2017 Procedure Start Time: 10:02 Procedure End Time: 10:16 Procedure Staff Name Function Russ Hall MD Performing Physician Karine Quintanilla RN Nurse David Raymond RT Monitor Billy Serrano RT Scrub Riki Cope RN Manager [employer] Procedure Data Cath Procedure Fluoroscopy Diagnostic fluoroscopy Total fluoroscopy Time: 2.9 time: 2.9 min min Diagnostic fluoroscopy Total fluoroscopy dose: 613 dose: 613 mGy mGy Contrast Material Contrast Material Type Amount (ml) Isovue 300 91 Entry Location Entry Primary Successful Side Size Upsize Upsize Entry Closure Succes sful Closure Location (Fr) 1 (Fr) 2 (Fr) Remarks Device Remarks Femoral Left 6 Fr Exoseal artery Short Estimated blood loss: 10 ml Procedure Complications No complications Procedure Medications Medication Administration Route Dosage Oxygen NC 2 l/min Heparin Flush Bag added to field 2 bags (1000units/500ml NS) Lidocaine 2% added to field 20 Versed I.V. 1 mg Fentanyl I.V. 50 mcg Versed I.V. 1 mg Fentanyl I.V. 50 mcg Heparin Bolus I.V. 5000 units Versed I.V. 1 mg Fentanyl I.V. 50 mcg Versed I.V. 1 mg Fentanyl I.V. 50 mcg Hemodynamics Rest HGB: 12.5 (g/dl) Heart Rate: 60 (bpm) Snapshots Pre Cath Intra NCS Post Cath Vital Signs Time Heart Resp SPO2 NIBP (mmHg) Rhythm Pain Sedation Rate (ipm) (%) Status Level (bpm) 9:44:28 63 22 99 169/83(143) NSR 0 (11) 10(A) , No pain 9:48:52 63 19 97 167/93(147) NSR 0 (11) 10(A) , No pain 9:53:16 62 16 100 159/79(141) NSR 0 (11) 10(A) , No pain 9:57:43 62 14 99 154/80(131) NSR 0 (11) 10(A) , No pain 10:02:05 64 16 95 142/71(118) NSR 0 (11) 10(A) , No pain 10:07:04 63 17 100 Measuring NSR 0 (11) 9(A) , No pain 10:07:06 63 16 100 131/69(110) NSR 0 (11) 9(A) , No pain 10:11:24 66 18 100 145/73(121) NSR 0 (11) 9(A) , No pain 10:15:46 67 16 100 139/73(118) NSR 0 (11) 9(A) , No pain Medications Time Medication Route Dose Verified Delivered Reason Notes Effectiveness by by 9:43:19 Oxygen NC 2 Russ Gonzalesca Per physician l/min Isabel Quintanilla RN 9:43:31 Heparin Flush added 2 Russ Solano used for Bag to bags Isabel Hall MD procedure (1000units/500ml field NS) 9:43:39 Lidocaine 2% added 20ml Russ Solano used for to vial Isabel Hall MD procedure field 9:59:11 Versed I.V. 1 mg Russ Karine for sedation Isabel Quintanilla RN 9:59:17 Fentanyl I.V. 50 Russ Karine for sedation mcg Isabel Quintanilla RN 10:01:43 Versed I.V. 1 mg Russ Karine for sedation Isabel Quintanilla RN 10:01:50 Fentanyl I.V. 50 Russ Karine for sedation mcg Isabel Quintanilla RN 10:03:27 Heparin Bolus I.V. 5000 Russ Karine for dose units Isabel Quintanilla RN anticoagulation verified with dr hall 10:03:49 Versed I.V. 1 mg Russ Karine for sedation Isabel Quintanilla RN 10:03:53 Fentanyl I.V. 50 Russ Karine for sedation mcg Isabel Quintanilla RN 10:05:30 Fentanyl I.V. 50 Russ Karine for sedation mcg Isabel Quintanilla RN 10:05:38 Versed I.V. 1 mg Russ Karine for sedation Isabel Quintanilla RN Procedure Log Time Note 9:19:07 Riki Cope RN sent for patient. Start room use. :19:08 Time tracking: Regular hours 9:19:12 Plan of Care:Hemodynamics will remain stable., Cardiac rhythm will remain stable., Comfort level will be maintained., Respiratory function will remain adequate., Patient/ family verbilizes understanding of procedure., Procedure tolerated without complication., Recovers from procedure without complications.. 9:43:08 Vital chart was started 9:43:19 Oxygen 2 l/min NC was administered by Karine Quintanilla RN; Per physician; 9:43:31 Heparin Flush Bag (1000units/500ml NS) 2 bags added to field was administered by Russ Hall MD; used for procedure; 9:43:39 Lidocaine 2% 20ml vial added to field was administered by Russ Hall MD; used for procedure; 9:47:18 Patient received from Pre/Post Procedure Room to CCL 1 Alert and oriented. Tansferred to table in Supine position. 9:47:19 Warm blankets applied, and zaria hugger turned on for patient comfort. 9:47:20 Correct patient and procedure confirmed by team. 9:47:22 Signed procedure consent form obtained from patient. 9:47:23 ECG and BP/O2 sat monitors applied to patient. 9:47:36 Baseline sample Acquired. 9:47:47 Rhythm: sinus rhythm 9:47:49 Full Disclosure recording started 9:48:46 H&P Date Dictated: 02/14/2017 New H&P dictated by physician.. 9:48:48 Pre-procedure instructions explained to patient. 9:48:49 Pre-op teaching completed and patient verbalized understanding. 9:49:13 PATIENT IS A PLANNED PCI RETURN 9:56:49 Family in patients room. 9:56:57 Patient NPO since Midnight. 9:56:59 Is the patient allergic to Iodine/contrast media? No. 9:57:00 Is patient on blood thinner?Yes 9:57:02 ACC The patient was administered the following blood thiners within the last 24 hours: ACCPlavix 9:57:06 Patient diabetic? Yes. 9:57:07 If diabetic: On Metformin? No 9:57:15 Previous problem with sedation/anesthesia? No ? 9:57:17 Snore? Yes 9:57:23 Sleep apnea? Yes 9:57:24 Deviated septum? No 9:57:24 Opens mouth fully? Yes 9:57:25 Sticks out tongue? Yes 9:57:28 Airway obstruction? No ? 9:57:30 Dentures? No ? 9:57:33 Pre procedure: left dorsailis pedis pulse 1+ Palpable, but thready & weak; easily obliterated 9:57:36 Patient pain scale 0/10 ?. 9:57:42 IV patent on arrival in left forearm with 0.9% NaCl at O. 9:57:44 Lab results completed and on chart. 9:57:48 Left groin area was prepped with chlora-prep and draped in sterile fashion 9:57:49 Alarms reviewed by R. N. 9:57:50 Sharps counted by scrub and verified by R.N. 9:58:03 Use device set Femoral PCI 9:58:06 Acist Manifold opened to sterile field. 9:58:06 Tegaderm 4 x 4 opened to sterile field. 9:58:07 Acist Syringe opened to sterile field. 9:58:08 Acist Hand Control opened to sterile field. 9:58:08 Bag Decanter opened to sterile field. 9:58:08 Medline Cath Pack opened to sterile field. 9:58:09 Terumo 6Fr [place] Sheath opened to sterile field. 9:58:09 St Raoul 260cm J .035 wire opened to sterile field. 9:58:10 SkillBoost BasixCompak Inflation Kit opened to sterile field. 9:58:30 Mcrae Whisper J 300cm 0.014 guide wire opened to sterile field. 9:58:30 Cordis 6FR XBLAD 3.5 guide catheter opened to sterile field. 9:58:45 --------ALL STOP TIME OUT------ 9:58:45 Final Timeout: patient, procedure, and site verified with staff and physician. All members of the team are in agreement. 9:58:47 Left groin site verified by team. 9:58:49 Physical assessment completed. ASA score P 2 - A patient with mild systemic disease as per Russ Hall MD. 9:58:52 Sedation plan: IV Moderate Sedation Versed, Fentanyl 9:59:11 Versed 1 mg I.V. was administered by Karine Quintanilla RN; for sedation; 9:59:17 Fentanyl 50 mcg I.V. was administered by Karine Quintanilla RN; for sedation; 10:01:43 Versed 1 mg I.V. was administered by Karien Quintanilla RN; for sedation; 10:01:50 Fentanyl 50 mcg I.V. was administered by Karine Quintanilla RN; for sedation; 10:02:45 Procedure started. 10:02:59 Local anesthetic to left femerol artery with Lidocaine 2% by Russ Hall MD.INITIAL ACCESS ONLY 10:03:09 A 6 Fr Short sheath was inserted into the Left Femoral artery 10:03:20 6 Fr XBLAD 3.5 guide catheter was inserted over the wire 10:03:25 ACC PCI Site: pLAD has 90% stenosis. 10:03:27 Heparin Bolus 5000 units I.V. was administered by Karine Quintanilla RN; for anticoagulation; dose verified with dr hall 10:03:27 ACC Pre-intervention TAURUS Flow is 3. 10:03:34 ACC PCI Site: mCirc has 90% stenosis. 10:03:36 ACC Pre-intervention TAURUS Flow is 3. 10:03:49 Versed 1 mg I.V. was administered by Karine Quintanilla RN; for sedation; 10:03:53 Fentanyl 50 mcg I.V. was administered by Karine Quintanilla RN; for sedation; 10:04:43 Whisper wire advanced. 10:05:30 Fentanyl 50 mcg I.V. was administered by Karine Quintanilla RN; for sedation; 10:05:38 Versed 1 mg I.V. was administered by Karine Quintanilla RN; for sedation; 10:06:59 Wire advanced across lesion and down the CIRC. 10:07:13 Inflation Number: 1 A Biofreedom 2.5 x 24 stent (No Cost Implant) was prepped and advanced across the Mid CX. The stent was deployed at 11 [place] for 0:10 (min:sec). 10:07:33 ACC Post-intervention TAURUS Flow is 3. 10:07:34 Stent catheter was removed intact over wire. 10:07:42 Wire redirected to LAD. 10:11:18 Inflation Number: 1 A Biofreedom 3.0 x 14 stent (No Cost Implant) was prepped and advanced across the Prox LAD. The stent was deployed at 11 [place] for 0:10 (min:sec). 10:14:12 ACC Post-intervention TAURUS Flow is 3. 10:14:13 Stent catheter was removed intact over wire. 10:14:13 Wire removed. 10:14:14 Guide catheter removed. 10:14:28 Cordis 6Fr Exoseal opened to sterile field. 10:14:37 Sheath removed intact; hemostasis achieved with Exoseal to the Left Femoral artery. 10:14:39 Procedure ended.(Physican Out) 10:15:01 Fluoroscopy time 02.90 minutes. 10:15:05 Fluoroscopy dose: 613 mGy 10:15:05 Flurop Dose total: 613 10:15:09 Contrast amount:Isovue 300 91ml. 10:15:10 Sharps counted by scrub and verified by R.N. 10:15:21 Insertion/operative site no bleeding no hematoma. 10:15:24 Post-op/insertion site Left Femoral artery dressed using a 4 x 4 and Tegaderm. 10:15:26 Post Procedure Pulses reassessed and unchanged 10:15:29 Post-procedure physical assessment completed. ASA score P 2 - A patient with mild systemic disease as per Russ Hall MD. 10:15:36 Post procedure rhythm: unchanged. 10:15:39 Estimated blood loss: 10 ml 10:15:40 Post procedure instruction explained to patient.Patient verbalizes understanding. 10:15:41 Patient needs reinforcement of post procedure teaching. 10:15:51 Procedure type changed to Cath procedure, PCI procedure, Coronary Stent Initial x2, Miscellaneous Procedures, Moderate Sedation up to 15 minutes 10:16:15 Procedure and supply charges have been captured, reviewed, submitted and are correct. 10:16:18 Procedure Complication : No complications 10:16:47 Vital chart was stopped 10:16:48 See physician's report for complete and final results. 10:16:50 Report given to Pre/Post Procedure Room. 10:16:52 Patient transfered to Pre/Post Procedure Room with Bed. 10:16:54 Procedure ended. 10:16:54 Full Disclosure recording stopped 10:17:03 End room use (Document Last) Intervention Summary Intervention Notes Time ActionType Lesion and Equipment Action# Pressure Duration Attributes Used 10:07:13 Place stent Mid CX Biofreedom 1 11 00:10 2.5 x 24 stent (No Cost Implant) 10:11:18 Place stent Prox LAD Biofreedom 1 11 00:10 3.0 x 14 stent (No Cost Implant) Device Usage Item Name Manufacture Quantity Catalog Hospital Part Current Minimal Lot# / Number Charge Number Stock Stock Serial# Code Jason Gomez 1 [id number] [id number] 789410 317117 5 Manifold Medical HOLLR Inc Tegaderm 4 3M 1 1626W 852186 473443 330205 5 x 4 Acist Acist 1 83349 494932 918551 707242 20 Syringe Medical Systems Inc Acist Hand Acist 1 60217 628677 777089 226524 5 Control Medical Systems Inc Bag Microtek 1 2002S 528694 07373 948092 5 Decpayworks Medical Inc. Medline Cardinal 1 [id number] 658981 40248 893255 5 Cath Pack Health Terumo 6Fr Terumo 1 [id number] 468771 520481 435469 [address] St Raoul 1 957898 440814 313526 310769 30 260cm J .035 wire Merit Merit 1 UV6672 444337 108097 422976 15 BasixCompak Medical Inflation Kit Mcrae Mcrae 1 [id number] 622780 278810 206785 5 Whisper J Vascular 300cm 0.014 guide wire Cordis 6FR Cardinal 1 [id number] 444934 697032 471277 10 XBLAD 3.5 Health guide catheter Biofreedom Biosensors 1 [facility]-2524 755789 696717 5 [id number] 2.5 x 24 [place] stent (No Cost Implant) Biofreedom Biosensors 1 [facility]3014 180469 905975 5 [id number] 3.0 x 14 [place] SA stent (No Cost Implant) Cordis 6Fr Cardinal 1 EX600 872573 532714 154876 10 [employer] Signature Audit Vincent Stage Time Signature Unsigned Intra-Procedure 02/14/2017 David Raymond 10:17:20 AM RT(R) Signatures Monitor : David Raymond RT Signature : Date : Time : [id number] [place] [address]
[~2017-02-14 08:07] MED LIST changes: +BAYER CHEWABLE81 MG PO; +PLAVIX75 MG PO
[2017-02-14 08:42] VITALS: BP 147/74; Ht 172.7 cm; Wt 118.2 kg
[2017-02-14 09:14] LABS: BASOPHILS 0.5 % (0-2); EOSINOPHILS 3.9 % (0-7); HEMATOCRIT 39.1 % (42.0-54.0); HEMOGLOBIN 12.6 g/dL (13.5-17.5); IMMATURE GRANULOCYTES 0.2 % (0-5); LYMPHOCYTES 25.6 % (15-50); MCH 27.8 pg (26.0-34.0); MCHC 32.2 g/dL (31.0-37.0); MCV 86.3 fL (80.0-100.0); MONOCYTES 5.9 % (2-11); NEUTROPHILS 63.9 % (40-80); PLATELET COUNT 162 10x3/uL (130-400); RBC 4.53 10x6/uL (4.20-6.10); RDW 14.3 % (11.5-14.5); WBC 5.9 10x3/uL (4.8-10.8)
[2017-02-14 09:38] LABS: CALC OSMOLALITY 293 mosm/kg (275-300); CALCIUM 8.9 mg/dL (8.5-10.1); CARBON DIOXIDE 30.7 mmol/L (21.0-32.0); CHLORIDE - SERUM 108 mmol/L (98-107); CKMB 0.5 U/L (0.0-3.6); CREATINE KINASE 40 UL (21-232); CREATININE - SERUM 1.3 mg/dL (0.6-1.3); GLUCOSE 182 mg/dL (74-106); POTASSIUM - SERUM 4.4 mmol/L (3.5-5.1); SODIUM 143 mmol/L (136-145); TROPONIN-I < 0.017 ng/mL (0.000-0.060); UREA NITROGEN 23 mg/dL (7-18); eGFR NON AFRICAN AMERICAN 58 mL/min (90-120)
--- NOTE | 2017-02-14 10:40 | NUR ---
1035 RECEIVED PT FROM [facility]. PT IS DROWSY, DENIES ANY C/O CHEST DISCOMFORT. SINUS RHYTHM, RATE 66. RR EVEN AND UNLABORED ON O2 AT 2LPM VIA NC. 6 FR EXOSEAL DRESSING TO LEFT GROIN IS CDI, NO BLEEDING OR HEMATOMA NOTED AT SITE. AREA IS SOFT AND NONTENDER. PEDAL PULSES PALPABLE. INSTRUCTED PT TO KEEP LEFT LEG STRAIGHT AND HEAD TO PILLOW, PT VERBALIZES UNDERSTANDING. PT'S AT BEDSIDE, CALL LIGHT IN REACH PT INSTRUCTED TO CALL FOR NEEDS AND VERBALIZES UNDERSTANDING.
--- NOTE | 2017-02-14 10:47 | NUR ---
1050 LEFT GROIN CDI, AREA SOFT AND NONTENDER. PEDAL PULSES PALPBLE. AT BEDSIDE. PT DENIES ANY C/O AT THIS TIME.
--- NOTE | 2017-02-14 11:20 | NUR ---
LEFT GROIN- CDI, NO HEMATOMA OR BLEEDING NOTED AT SITE. DENIES PAIN OR NEEDS.
--- NOTE | 2017-02-14 14:00 | NUR ---
IV D'C WITH CATH TIP INTACT, WRITTEN AND VERBAL D'C INSTRUCTIONS GIVEN AND UNDERSTOOD. LAB AND EKG COMPLETED
== END 2017-02-14 14:15 | disposition home or self-care (01) ==
LOC: D.CATH 08:07
PROVIDERS: Internal Medicine Interventional Cardiology
DX: I25.119 Atherosclerotic heart disease of native coronary artery with unspecified angina pectoris (principal); Z00.6 Encounter for examination for normal comparison and control in clinical research program; Z95.5 Presence of coronary angioplasty implant and graft; B19.20 Unspecified viral hepatitis C without hepatic coma; I10 Essential (primary) hypertension; E78.5 Hyperlipidemia, unspecified; Z01.812 Encounter for preprocedural laboratory examination
CPT/HCPCS: 93458; C9600 ×2

== ENCOUNTER → 2017-12-15 10:39 | Outpatient (CLI) | payer MEDICARE, OTHER ==
[2017-02-14 08:42] VITALS: BMI 39.6
== END | disposition home or self-care (01) ==
LOC: D.US 10:39
DX: I12.9 Hypertensive chronic kidney disease with stage 1 through stage 4 chronic kidney disease, or unspecified chronic kidney disease (principal); N18.3 Chronic kidney disease, stage 3 (moderate); E11.22 Type 2 diabetes mellitus with diabetic chronic kidney disease; Z68.41 Body mass index [BMI] 40.0-44.9, adult

== ENCOUNTER 2018-11-26 09:19 | Outpatient (CLI) | payer MEDICARE, OTHER ==
[~2018-11-26] VITALS: Ht 172.7 cm; Wt 124.1 kg
--- NOTE | ~2018-11-26 | OP ---
PATIENT NAME: MICKEY TOMLINSON MEDICAL RECORD: [id number] :49 LOCATION:D.CAT ADMISSION DATE: SURGEON: EMANI BHAT MD DATE OF OPERATION: 11/26/2018 PROCEDURE: 1. PTCA stent left circumflex. 2. PTCA stent first obtuse marginal. 3. Left heart catheterization. 4. Selective coronary angiography. 5. Left ventriculogram. INDICATION: Angina and coronary artery disease. PROCEDURE IN DETAIL: After informed consent was obtained and after detailed explanation of risks, benefits as well as alternative therapies, the patient elected to proceed with angiogram and angioplasty. The right radial area was prepped and draped in normal sterile fashion. Right radial artery was cannulated via modified Seldinger technique with placement of 6-Czech sheath. All catheters exchanged through this sheath. FINDINGS: Left ventriculogram was performed in standard 30-degree TALLEY view, reveals apical hypokinesis. Overall ejection fraction in the 40% range. SELECTIVE CORONARY ANGIOGRAPHY: 1. Left main is with no significant angiographic disease. 2. Left anterior descending has moderate irregularities, but no flow-limiting stenosis. 3. The left circumflex has 95% stenosis of the circumflex as well as first obtuse marginal system. 4. Right coronary has greater than 80% stenosis at the ostium with pressure damping of the diagnostic catheter. PTCA STENT OF THE LEFT CIRCUMFLEX AND FIRST OBTUSE MARGINAL: The obtuse marginal was addressed with a 2.0 x 26 Narendra and the circumflex with a 2.0 x 30 [place]. Result was 0% residual stenosis. OVERALL IMPRESSION: Successful PTCA stent of the circumflex and obtuse marginal, both going from 95% to 99% initial stenosis to 0% residual. PLAN: For PTCA stent of the ostial RCA in the near future. TRANSINT:[id number] Voice Confirmation ID: [id number] DOCUMENT ID: [id number] EMANI BHAT MD CC: [id number] DICTATION DATE: 11/26/18 1125 RN HEMODIALYSIS: 11/26/18 12[address] [place] [address]
--- NOTE | ~2018-11-26 | HEMODYNAMI ---
PATIENT:MICKEY TOMLINSON MEDICAL RECORD: [id number] : 49 LOCATION:[facility] ADMISSION DATE: 11/26/18 Generatedon:11/26/201811:28 Patient name: MICKEY TOMLINSON Patient #: [id number] SSN: [id number] : 1945 Date of study: 11/26/2018 Page: Of Hemodynamic Procedure Report Patient Data Patient Demographics Procedure consent was obtained First Name: MICKEY Gender: Male Last Name: BUSHRA : 1945 Middle Initial: MARY Age: 73 year(s) Patient #: [id number] Race: SSN: [id number] Additional ID: [id number] Contact details Address: [address] [place] [address] State: [place] City: [place] Zip code: [address] Past Medical History Allergies Allergen Reaction Date Comments Reported Other allergy 01/18/2017 [facility] Admission Admission Data Admission Date: 11/26/2018 Admission Time: 9:19 Procedure Procedure Types Cath Procedure Diagnostic Procedure C [facility] w/Coronaries Sedation Charges Moderate Sedation up to 15 minutes PCI Procedure Coronary Stent Coronary Stent Initial Coronary Stent Additional Procedure Description Procedure Date Procedure Date: 11/26/2018 Procedure Start Time: 10:59 Procedure End Time: 11:24 Procedure Staff Name Function Russ Hall MD Performing Physician Angélica Del Valle RT Monitor Riki Cope RN Nurse David Raymond RT Scrub Procedure Data Cath Procedure Fluoroscopy Diagnostic fluoroscopy Total fluoroscopy Time: 9.6 time: 9.6 min min Diagnostic fluoroscopy Total fluoroscopy dose: dose: 1059 mGy 1059 mGy Contrast Material Contrast Material Type Amount (ml) Isovue 300 183 Entry Location Entry Primary Successful Side Size Upsize Upsize Entry Closure Gold ccessful Closure Location (Fr) 1 (Fr) 2 (Fr) Remarks Device Remarks Radial Right 6 Fr Mechanical artery Short Compression Estimated blood loss: 5 ml Diagnostic catheters Device Type Used For End Catheter Placement DIAGNOSTIC [place] 110cm 5 Multi-vessel Fr catheter ([id number]) Angiography Procedure Complications No complications Procedure Medications Medication Administration Route Dosage Oxygen etCO2 Nasal cannula 2 l/min Heparin Flush Bag added to field 2 bags (1000units/500ml NS) 0.9% NaCl I.V. 100 ml/hr Lidocaine 2% added to field 20 Radial Cocktail added to field 1 syringe (Verapomil 2mg/Nitro 400mcg/Heparin 1500units) Fentanyl I.V. 50 mcg Versed I.V. 1 mg Radial Cocktail I.A. 1 syringe (Verapomil 2mg/Nitro 400mcg/Heparin 1500units) Fentanyl I.V. 50 mcg Heparin Bolus I.V. 4000 units Integrilin (Bolus I.V. 11.3 ml 2mg/ml) Integrilin (Bolus wasted 8.7 ml 2mg/ml) Versed I.V. 1 mg Hemodynamics Rest Heart Rate: 84 (bpm) Pressure Samples Time Site Value (mmHg) Purpose Heart Use Rate(bpm) 11:02 LV 112/48,35 Snapshot 98 Snapshots Pre Cath Intra NCS Post Cath Vital Signs Time Heart Resp SPO2 etCO2 NIBP (mmHg) Rhythm Pain Sedation Rate (ipm) (%) (mmHg) Status Level (bpm) 10:44:31 89 17 95 0 140/99(120) NSR 0 (11) 10(A) , No pain 10:48:42 89 16 95 44.4 137/96(116) NSR 0 (11) 10(A) , No pain 10:52:50 84 17 96 23.3 131/93(105) NSR 0 (11) 10(A) , No pain 10:57:00 92 16 96 15.8 131/89(107) NSR 0 (11) 9(A) , No pain 11:01:14 87 16 97 36.9 130/83(112) NSR 0 (11) 9(A) , No pain 11:05:26 79 16 97 36.9 118/78(103) NSR 0 (11) 9(A) , No pain 11:09:38 80 16 97 39.7 113/81(96) NSR 0 (11) 9(A) , No pain 11:13:52 83 17 95 0.7 112/73(96) NSR 0 (11) 9(A) , No pain 11:18:00 83 16 97 38.4 122/84(101) NSR 0 (11) 9(A) , No pain 11:22:10 77 16 97 36.1 111/83(99) NSR 0 (11) 9(A) , No pain Medications Time Medication Route Dose Verified Delivered Reason Not es Effectiveness by by 10:43:50 Oxygen etCO2 2 l/min Russ Lyn Per physician Nasal Isabel Cope RN cannula 10:43:58 Heparin Flush added 2 bags Russ Lyn used for Bag to Isabel Cope RN procedure (1000units/500ml field NS) 10:44:08 0.9% NaCl I.V. 100 Russ Lyn Per physician ml/hr Isabel Cope RN 10:44:17 Lidocaine 2% added 20ml Russ Lyn used for to vial Isabel Cope RN procedure field 10:44:27 Radial Cocktail added 1 Russ Lyn used for (Verapomil to syringe Isabel Cope RN procedure 2mg/Nitro field 400mcg/Heparin 1500units) 10:54:27 Fentanyl I.V. 50 mcg Russ Lyn for sedation Isabel Cope RN 10:54:33 Versed I.V. 1 mg Russ Lyn for sedation Isabel Cope RN 11:01:49 Radial Cocktail I.A. 1 Russ Solano for (Verapomil syringe Isabel Hall MD vasodilation 2mg/Nitro 400mcg/Heparin 1500units) 11:02:55 Fentanyl I.V. 50 mcg Russ Lyn for sedation Isabel Cope RN 11:08:50 Heparin Bolus I.V. 4000 Russ Lyn for units Isabel Cope RN anticoagulation 11:09:07 Integrilin I.V. 11.3 ml Russ Lyn for (Bolus 2mg/ml) Isabel Cope RN antiplatelet therapy 11:10:43 Integrilin wasted 8.7 ml Russ Lyn for (Bolus 2mg/ml) Isabel Cope RN antiplatelet therapy 11:13:28 Versed I.V. 1 mg Russ Lyn for sedation Isabel Cope RN Procedure Log Time Note 10:20:20 Riki Cope RN sent for patient. Start room use. 10:34:21 Time tracking: Regular hours (M-F 7:00 - 5:00) 10:34:25 Plan of Care:Hemodynamics will remain stable., Cardiac rhythm will remain stable., Comfort level will be maintained., Respiratory function will remain adequate., Patient/ family verbilizes understanding of procedure., Procedure tolerated without complication., Recovers from procedure without complications.. 10:36:42 Patient received from Pre/Post Procedure Room to [facility] Alert and oriented. Tansferred to table in Supine position. 10:36:43 Warm blankets applied, and zaria hugger turned on for patient comfort. 10:36:44 Correct patient and procedure confirmed by team. 10:36:45 Signed procedure consent form obtained from patient. 10:36:46 ECG and BP/O2 sat monitors applied to patient. 10:43:27 Vital chart was started 10:43:50 Oxygen 2 l/min etCO2 Nasal cannula was administered by Riki Cope RN; Per physician; 10:43:58 Heparin Flush Bag (1000units/500ml NS) 2 bags added to field was administered by Riki Cope RN; used for procedure; 10:44:08 0.9% NaCl 100 ml/hr I.V. was administered by Riki Cope RN; Per physician; 10:44:17 Lidocaine 2% 20ml vial added to field was administered by Riki Cope RN; used for procedure; 10:44:27 Radial Cocktail (Verapomil 2mg/Nitro 400mcg/Heparin 1500units) 1 syringe added to field was administered by Riki Cope RN; used for procedure; 10:49:33 Baseline sample Acquired. 10:49:39 Rhythm: sinus rhythm 10:49:42 Full Disclosure recording started 10:49:46 H&P Date Dictated: 11/26/2018 Within 30 days and on chart., H&P Addendum completed by physician on day of procedure. (MUST COMPLETE FOR ALL OUTPATIENTS). 10:49:48 Pre-procedure instructions explained to patient. 10:49:48 Pre-op teaching completed and patient verbalized understanding. 10:49:50 Family in waiting room. 10:49:51 Patient NPO since Midnight. 10:49:58 Is the patient allergic to Iodine/contrast media? No. 10:49:59 Was the patient premedicated? No 10:50:22 Is patient on blood thinner?No 10:50:23 Patient diabetic? Yes. 10:50:24 If diabetic: On Metformin? No 10:50:44 Bill 11/24/2018 10:50:47 Previous problem with sedation/anesthesia? No ? 10:50:48 Snore? Yes 10:50:49 Sleep apnea? No 10:50:50 Deviated septum? No 10:50:51 Opens mouth fully? Yes 10:50:51 Sticks out tongue? Yes 10:50:56 Airway obstruction? Yes asthma 10:50:59 Dentures? No ? 10:51:04 Pre procedure: right dorsailis pedis pulse 1+ Palpable, but thready & weak; easily obliterated 10:51:05 Pre procedure: left dorsailis pedis pulse 1+ Palpable, but thready & weak; easily obliterated 10:51:22 IV patent on arrival in right antecubital with 0.9% NaCl at KVO. 10:51:25 Lab results completed and on chart. 10:51:30 Right Radial & Right Groin area was prepped with chlora-prep and draped in sterile fashion 10:51:31 Alarms reviewed by R. N. 10:51:31 Sharps counted by scrub and verified by R.N. 10:53:45 Physician arrived 10:53:45 --------ALL STOP TIME OUT------ 10:53:45 Final Timeout: patient, procedure, and site verified with staff and physician. All members of the team are in agreement. 10:53:48 Right Radial & Right Groin site verified by team. 10:53:52 Maximum allowable Isovue 370 dose 300ml. Physician notified. (300ml for normal creatinines. For patients with creatinine of 1.7 or higher multiply weight(kg) x 5 divided by creatinine.) 10:53:56 Fire Safety Assessment: A--An alcohol-based skin anteseptic being used preoperatively., C--Open oxygen or nitrous oxide is being used., D--An ESU, laser, or fiber-optic light is being used. 10:54:01 Physical assessment completed. ASA score P 2 - A patient with mild systemic disease as per Russ Hall MD. 10:54:04 Sedation plan: IV Moderate Sedation Medication:Versed, Fentanyl 10:54:09 Use device set Radial Dx or PCI 10:54:10 ACIST Syringe (49417) opened to sterile field. 10:54:10 Medline Cath Pack ([id number]) opened to sterile field. 10:54:11 Bag Decanter (2002) opened to sterile field. 10:54:11 DIAGNOSTIC WIRE .035 260cm J wire (581327) opened to sterile field. 10:54:12 ACIST Hand Control (09016) opened to sterile field. 10:54:12 ACIST Manifold (50493) opened to sterile field. 10:54:13 Tegaderm 4 x 4 (1626W) opened to sterile field. 10:54:13 MBrace Wrist Support ([id number]) opened to sterile field. 10:54:14 SHEATH 6FR Slender (00-9846) opened to sterile field. 10:54:27 Fentanyl 50 mcg I.V. was administered by Riki Cope RN; for sedation; 10:54:33 Versed 1 mg I.V. was administered by Riki Cope RN; for sedation; 10:58:17 Procedure started. 10:59:25 Local anesthetic to right radial artery with Lidocaine 2% by Russ Hall MD.INITIAL ACCESS ONLY 11:00:05 A 6 Fr Short sheath was inserted into the Right Radial artery 11:01:13 A DIAGNOSTIC [place] 110cm 5 Fr catheter (853054) was advanced over the wire and used for Multi-vessel Angiography. 11:01:49 Radial Cocktail (Verapomil 2mg/Nitro 400mcg/Heparin 1500units) 1 syringe I.A. was administered by Russ Hall MD; for vasodilation; 11:02:55 Fentanyl 50 mcg I.V. was administered by Riki Cope RN; for sedation; 11:02:57 LV hemodynamics recorded. 11:02:59 LV gram done using TALLEY 11:03:02 Injector settings: Ml/sec: 5, Volume: 15, 11:03:09 EF : 40 % 11:03:30 RCA angiography performed. 11:03:34 Injector settings: Ml/sec: 3, Volume: 6, 11:04:26 Catheter removed. 11:04:35 GUIDE 6FR XBLAD 3.5 catheter ([id number]) opened to sterile field. 11:05:14 INFLATOR Merit BasixCompak (PC6868) opened to sterile field. 11:05:14 CHOICE PT Extra Support 182cm wire ([id number]) opened to sterile field. 11:05:53 6 Fr xblad 3.5 guide catheter was inserted over the wire 11:06:50 choice pt wire advanced. 11:07:21 CHOICE PT Extra Support 182cm wire ([id number]) opened to sterile field. 11:08:50 Heparin Bolus 4000 units I.V. was administered by Riki Cope RN; for anticoagulation; 11:09:07 Integrilin (Bolus 2mg/ml) 11.3 ml I.V. was administered by Riki Cope RN; for antiplatelet therapy; 11:10:42 second choice pt wire being advanced down LCX 11:10:43 Integrilin (Bolus 2mg/ml) 8.7 ml wasted was administered by Riki Cope RN; for antiplatelet therapy; 11:12:10 Inflate balloon Inflation number: 1 A EUPHORA 2.0 x 20 Balloon ([id number]) was prepped and advanced across the 1st Ob Justa, then inflated to 11 ALIDA for 0:10 (min:sec). 11:12:16 Inflation number: 2 The EUPHORA 2.0 x 20 Balloon ([id number]) was reinflated across the 1st Ob Justa, to 11 ALIDA for 0:10 (min:sec). 11:13:28 Versed 1 mg I.V. was administered by Riki Cope RN; for sedation; 11:13:32 Balloon removed over the wire. 11:14:19 Place stent Inflation Number: 3 A ANTONI RX 2.0 x 26 stent ([id number]) was prepped and advanced across the 1st Ob Justa. The stent was deployed at 13 ALIDA for 0:10 (min:sec). 11:15:26 Inflation number: 4 The stent balloon was then re-inflated across the 1st Ob Justa to 7 ALIDA for 0:15 (min:sec). 11:16:05 Stent catheter was removed intact over wire. 11:17:23 Inflation number: 1 The EUPHORA 2.0 x 20 Balloon ([id number]) was reinflated across the Mid CX, to 11 ALIDA for 0:10 (min:sec). 11:17:36 Inflation number: 2 The EUPHORA 2.0 x 20 Balloon ([id number]) was reinflated across the Mid CX, to 11 ALIDA for 0:10 (min:sec). 11:18:30 Balloon removed over the wire. 11:21:10 Place stent Inflation Number: 3 A ANTONI RX 2.0 x 30 stent ([id number]) was prepped and advanced across the Mid CX. The stent was deployed at 13 ALIDA for 0:10 (min:sec). 11:21:43 Stent catheter was removed intact over wire. 11:21:45 Wire removed. 11:21:46 Guide catheter removed. 11:21:56 Sheath removed intact; hemostasis achieved with Mechanical Compression to the Right Radial artery. 11:21:57 Procedure ended.(Physican Out) 11:22:54 Fluoroscopy time 09.60 minutes. 11::59 Fluoroscopy dose: 1059 mGy 11::59 Flurop Dose total: 1059 11:23:04 Contrast amount:Isovue 300 183ml. 11:23:06 Sharps counted by scrub and verified by R.N. 11:23:09 TR band inflated with 10cc of air. 11:23:11 Insertion/operative site no bleeding no hematoma. 11:23:15 Post right radial artery:stable 11:23:17 Post Procedure Pulses reassessed and unchanged 11:23:20 Post procedure rhythm: unchanged. 11:23:22 Estimated blood loss: 5 ml 11:23:24 Post procedure instruction explained to patient.Patient verbalizes understanding. 11:23:25 Patient needs reinforcement of post procedure teaching. 11:23:43 Procedure type changed to Cath procedure, Diagnostic procedure, LHC, LHC w/Coronaries, Sedation Charges, Moderate Sedation up to 15 minutes, PCI procedure, Coronary Stent, Coronary Stent Initial, Coronary Stent Additional 11:23:44 Procedure and supply charges have been captured, reviewed, submitted and are correct. 11:23:49 Procedure Complication : No complications 11:23:52 Vital chart was stopped 11::52 See physician's report for complete and final results. 11:23:57 Report given to Pre/Post Procedure Room. 11:24:01 Patient transfered to Pre/Post Procedure Room with Stretcher. 11:24:03 Procedure ended. 11:24:03 Full Disclosure recording stopped 11:24:20 ACC-PCI Only Patient was given prescriptions, or instructed by Russ Hall MD to start/continue the following medications upon discharge: Plavix 11:24:22 End room use (Document Last) 11:27:14 TR BAND Standard ([id number]) opened to sterile field. Intervention Summary Intervention Notes Time ActionType Lesion and Equipment Used Action# Pressure Duration Attributes 11:12:10 Inflate 1st Ob Justa EUPHORA 2.0 x 1 11 00:10 balloon 20 Balloon ([id number]) 11:12:16 Reinflate 1st Ob Justa EUPHORA 2.0 x 2 11 00:10 balloon 20 Balloon ([id number]) 11:14:19 Place stent 1st Ob Justa ANTONI RX 2.0 x 3 13 00:10 26 stent ([id number]) 11:15:26 Reinflate 1st Ob Justa ANTONI RX 2.0 x 4 7 00:15 stent 26 stent balloon ([id number]) 11:17:23 Reinflate Mid CX EUPHORA 2.0 x 1 11 00:10 balloon 20 Balloon ([id number]) 11:17:36 Reinflate Mid CX EUPHORA 2.0 x 2 11 00:10 balloon 20 Balloon ([id number]) 11:21:10 Place stent Mid CX ANTONI RX 2.0 x 3 13 00:10 30 stent ([id number]) Device Usage Item Name Manufacture Quantity Catalog Number [facility] Part Current M inimal Lot# / Charge Number Stock Stock Serial# Code ACIST Syringe Acist 1 44462 162820 847499 814021 2 0 (80958) Medical Systems Inc Medline Cath Medline 1 [id number] 115751 45001 830264 5 Pack ([id number]) Bag Decanter Microtek 1 780732 02654 979378 5 () Medical Inc. DIAGNOSTIC St [place] 1 207556 717865 496481 233740 3 0 WIRE .035 260cm J wire (559763) ACIST Hand Acist 1 58808 985490 263140 309762 5 Control Medical (42373) Systems Inc ACIST Manifold Acist 1 84363 740431 738875 459602 5 (16557) Medical Systems Inc Tegaderm 4 x 4 3M 1 1626W 728831 671990 607787 5 (1626W) MBrace Wrist Advanced 1 140-0250-00 517334 50716 138600 5 Support Vascular ([id number]) Dynamics SHEATH 6FR Terumo 1 [id number] 489702 203733 279577 5 Slender (80-1060) DIAGNOSTIC Terumo 1 40-7323 820594 564501 132625 5 [place] 110cm 5 Fr catheter (298215) GUIDE 6FR Cardinal 1 06592439 006624 768814 384160 1 0 XBLAD 3.5 Health catheter (46210331) INFLATOR Merit Merit 1 TO9007 828014 231161 191289 1 5 [employer] (YV5318) CHOICE PT [place] 2 [id number] 923024 187053 688639 5 Extra Support Scientific 182cm wire ([id number]) EUPHORA 2.0 x Medtronic 1 [id number] 578740 839722 707691 5 [id number] 20 Balloon ([id number]) ANTONI RX 2.0 x Medtronic 1 [id number] 655083 8830767 083026 5 [id number] 26 stent ([id number]) ANTNOI RX 2.0 x Medtronic 1 [id number] 760919 0003434 768150 5 [id number] 30 stent ([id number]) TR BAND Terumo 1 [id number] 726609 287150 164493 4 0 Standard ([id number]) Signature Audit [place] Stage Time Signature Unsigned Intra-Procedure 11/26/2018 Angélica Del Valle 11:28:42 AM RT(R) Signatures Monitor : Angélica Del Valle RT Signature : Date : Time : [facility] [address] [place] [address]
[2018-11-26] MEDS ORDERED: BETAPACE 80 MG80 MG PO (09:41)
[2018-11-26] MEDS ORDERED: GLYBURIDE5 M1 PO (09:41)
[2018-11-26] MEDS ORDERED: JANUMET 50-5001 EAC1 PO (09:41)
[2018-11-26] MEDS ORDERED: COZAAR50 MG PO (09:42)
[2018-11-26 09:52] VITALS: BP 138/81; Ht 172.7 cm; Wt 124.1 kg
[2018-11-26 10:06] LABS: HEMATOCRIT 44.8 % (42.0-54.0); HEMOGLOBIN 14.4 g/dL (13.5-17.5); MCH 28.3 pg (26.0-34.0); MCHC 32.1 g/dL (31.0-37.0); MCV 88.2 fL (80.0-100.0); MEAN PLATELET VOLUME 9.4 fL (7.4-10.4); PLATELET COUNT 189 10x3/uL (130-400); RBC 5.08 10x6/uL (4.20-6.10); RDW 14.7 % (11.5-14.5); WBC 6.2 10x3/uL (4.8-10.8)
[2018-11-26 10:33] LABS: ANION GAP 5.1 mmol/L (8-16); CALCIUM 8.5 mg/dL (8.5-10.1); CARBON DIOXIDE 33.9 mmol/L (21.0-32.0); CREATININE - SERUM 1.2 mg/dL (0.6-1.3)
[2018-11-26 10:51] LABS: EOSINOPHILS 2 % (0-7); LYMPHOCYTES 22 % (15-50); MONOCYTES 4 % (2-11); NEUTROPHILS 72 % (40-80); PLATELET ESTIMATE NORMAL
--- NOTE | 2018-11-26 11:40 | NUR ---
PT RECEIVED VIA STRETCHER FROM SOFTWARE ASSET MANAGEMENT ANALYST FOR RECOVERY. PT AWAKE, DENIES PAIN OR DISCOMFORT. TR BAND AND IMMOBILIZER TO R WRIST, DRESSING CDI NO BLEEDING OR HEMATOMA NOTED. CAP REFILL BRISK, HAND AND ARM PINK AND WARM HR NSR RATE 78, BP 119/76, O2 SAT 97 ON 2L O2 VIA NC. CALL LIGHT IN REACH, AT BEDSIDE. IV INFUSING VIA GRAVITY PER ORDERS.
[2018-11-26] MEDS ORDERED: PLAVIX75 MG PO (11:42)
[2018-11-26] MEDS ORDERED: ASPIRIN81 MG PO (11:42)
--- NOTE | 2018-11-26 11:57 | NUR ---
TR BAND TO R/WRIST IS CDI NO BLEEDING OR HEMATOMA NOTED. PATIENT RESPONDS TO VERBAL WITH CHEST PAIN DENIED.
--- NOTE | 2018-11-26 12:17 | NUR ---
TR BAND TO R/WRIST IS CDI NO BLEEDING OR HEMATOMA NOTED. REPOSITIONED TO SITTING WITH HOB UP 30 FOR COMFORT. SANDWICH AND SODA TO BEDSIDE WITH NAUSEA DENIED
--- NOTE | 2018-11-26 12:44 | NUR ---
PT TOLERATED SANDWICH W/O NAUSEA. DENIES PAIN OR NEEDS. TR BAND IN PLACE DRESSING CDI NO BLEEDING OR SWELLING NOTED. CALL LIGHT IN REACH, AT BEDSIDE.
--- NOTE | 2018-11-26 12:53 | NUR ---
PATIENT DENIED PAIN OR NEEDS. TR BAND TO R/WRIST IS CDI WITH NO BLEEDING NOTED. TOLERATING SANDWICH WITH NAUSEA DENIED
--- NOTE | 2018-11-26 13:03 | NUR ---
PT DOING WELL, TR BAND AND IMMOBILIZER IN PLACE. NO BLEEDING OR HEMATOMA NOTED. CALL LIGHT IN REACH, FAMILY AT BEDSIDE. VOIDED 250CC CLEAR YELLOW URINE IN URINAL.
--- NOTE | 2018-11-26 13:31 | NUR ---
PT RESTING COMFORTABLY W EYES CLOSED. TR BAND IN PLACE, DRESSING CDI NO BLEEDING OR HEMATOMA NOTED. CALL LIGHT IN REACH, AT BEDSIDE.
--- NOTE | 2018-11-26 14:01 | NUR ---
PT RESTING COMFORTABLY, DENIES PAIN OR NEEDS. TR BAND IN PLACE, DRESSING CDI NO BLEEDING OR SWELLING NOTED. R ARM PINK AND WARM, CAP REFILL BRISK. CALL LIGHT IN REACH, AT BEDSIDE
--- NOTE | 2018-11-26 14:26 | NUR ---
4CC AIR REMOVED FROM TR BAND, SMALL AMT OF BLEEDING SO REPLACED 1CC BACK IN TR BAND. NO ADDITIONAL BLEEDING NOTED. PT DENIES PAIN OR NEEDS AT THIS TIME. CALL LIGHT IN REACH, AT BESIDE.
--- NOTE | 2018-11-26 14:56 | NUR ---
3 ADD'L CC AIR REMOVED FROM TR BAND, NO BLEEDING OR SWELLING NOTED. PT W/O COMPLAINTS OR NEEDS. R ARM PINK AND WARM, CAP REFILL REMAINS BRISK. CALL LIGHT IN REACH, AT BEDSIDE.
--- NOTE | 2018-11-26 15:18 | NUR ---
DISCHARGE INSTRUCTIONS REVIEWED W PT AND . INSTRUCTED THEM ON PROCEDURE TIMES FOR WED 11/28/18. BOTH VERBALIZED UNDERSTANDING. IV REMOVED W CATH INTACT, MONITORS REMOVED AND PT UP TO DRESS FOR DISCHARGE W ASSIST OF .
--- NOTE | 2018-11-26 15:28 | NUR ---
REMAINING AIR AND TR BAND REMOVED, NO BLEEDING OR SWELLING NOTED. 2X2 AND TEGADERM DRESSING APPLIED. IMMOBILIZER PLACED BACK ON. PT DISCHARGED VIA WC TO PRIVATE VEHICLE WITH ALL BELONGINGS.
== END 2018-11-26 15:30 | disposition home or self-care (01) ==
LOC: D.CATH 09:19
PROVIDERS: ATTEND Internal Medicine Interventional Cardiology
DX: I25.110 Atherosclerotic heart disease of native coronary artery with unstable angina pectoris (principal)

== ENCOUNTER 2018-11-28 08:13 | Outpatient (CLI) | payer MEDICARE, OTHER ==
[~2018-11-28] VITALS: Ht 172.7 cm; Wt 124.5 kg
--- NOTE | ~2018-11-28 | HEMODYNAMI ---
PATIENT:MICKEY TOMLINSON MEDICAL RECORD: [id number] : 49 LOCATION:D.CAT ADMISSION DATE: 11/28/18 Generatedon:11/28/20189:54 Patient name: MICKEY TOMLINSON Patient #: [id number] SSN: [id number] : 1945 Date of study: 11/28/2018 Page: Of Hemodynamic Procedure Report Patient Data Patient Demographics Procedure consent was obtained First Name: MICKEY Gender: Male Last Name: BUSHRA : 1945 Middle Initial: MARY Age: 73 year(s) Patient #: [id number] Race: SSN: [id number] Additional ID: [id number] Contact details [address]: [address] [place] [address] State: [place] City: [place] Zip code: [address] Past Medical History Allergies Allergen Reaction Date Comments Reported Other allergy 01/18/2017 Bystolic Other allergy 11/28/2018 BYSTOLIC Admission Admission Data Admission Date: 11/28/2018 Admission Time: 8:13 Weight (lbs.): 275.58 Weight (kg.): 125 Lab Results Lab Result Date: 11/28/2018 Lab Result Time: 0:00 Biochemistry Name Units Result Min Max BUN mg/dl 24 --(----)-* 7 18 Creatinine mg/dl 1.2 --(---*)-- 0.6 1.3 CBC Name Units Result Min Max Hematocrit % 43.3 --(*---)-- 42 54 Hemoglobin g/dl 14.5 --(*---)-- 13.5 17.5 Procedure Procedure Types Cath Procedure PCI Procedure Coronary Stent Coronary Stent Initial Procedure Description Procedure Date Procedure Date: 11/28/2018 Procedure Start Time: 9:44 Procedure End Time: 9:53 Procedure Staff Name Function Russ Hall MD Performing Physician Melany Helton RT Monitor David Raymond RT Scrub Lilliam Mckeon RN Nurse Procedure Data Cath Procedure Fluoroscopy Diagnostic fluoroscopy Total fluoroscopy Time: 1.5 time: 1.5 min min Diagnostic fluoroscopy Total fluoroscopy dose: 165 dose: 165 mGy mGy Contrast Material Contrast Material Type Amount (ml) Isovue 300 33 Entry Location Entry Primary Successful Side Size Upsize Upsize Entry Closure Gold ccessful Closure Location (Fr) 1 (Fr) 2 (Fr) Remarks Device Remarks Radial Right 6 Fr Mechanical artery Short Compression Estimated blood loss: 10 ml Procedure Complications No complications Procedure Medications Medication Administration Route Dosage 0.9% NaCl I.V. 100 ml/hr Oxygen etCO2 Nasal cannula 2 l/min Lidocaine 2% added to field 20 Heparin Flush Bag added to field 2 bags (1000units/500ml NS) Radial Cocktail added to field 1 syringe (Verapomil 2mg/Nitro 400mcg/Heparin 1500units) Versed I.V. 2 mg Fentanyl I.V. 50 mcg Versed I.V. 2 mg Fentanyl I.V. 50 mcg Lopressor I.V. 5 mg Heparin Bolus I.V. 4000 units Hemodynamics Rest HGB: 14.5 (g/dl) Heart Rate: 101 (bpm) Snapshots Pre Cath Intra NCS Post Cath Vital Signs Time Heart Resp SPO2 etCO2 NIBP (mmHg) Rhythm Pain Sedation Rate (ipm) (%) (mmHg) Status Level (bpm) 9:13:12 114 27 97 20.2 133/86(107) A-Fib 0 (11) 10(A) , No pain 9:17:28 109 26 98 37.4 132/86(102) A-Fib 0 (11) 10(A) , No pain 9:22:39 106 21 98 36 128/80(110) A-Fib 0 (11) 10(A) , No pain 9:26:49 110 26 98 35.8 123/92(102) A-Fib 0 (11) 10(A) , No pain 9:31:03 112 21 97 35.8 125/87(100) A-Fib 0 (11) 10(A) , No pain 9:35:19 104 25 97 35.8 124/84(105) A-Fib 0 (11) 10(A) , No pain 9:39:31 109 15 97 20.9 112/93(109) A-Fib 0 (11) 10(A) , No pain 9:43:41 114 16 96 33 122/86(103) A-Fib 0 (11) 10(A) , No pain 9:47:57 86 16 98 23.1 105/73(88) A-Fib 0 (11) 10(A) , No pain 9:52:11 86 18 96 26.9 107/67(91) A-Fib 0 (11) 10(A) , No pain Medications Time Medication Route Dose Verified Delivered Reason Note s Effectiveness by by 9:12:07 0.9% NaCl I.V. 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 2 mg Russ Lilliam for sedation Isabel Mckeon RN 9:37:44 Fentanyl I.V. 50 mcg Russ Lilliam for sedation Isabel Mckeon RN 9:43:46 Fentanyl I.V. 50 mcg Russ Lilliam for sedation Isabel Mckeon RN 9:43:56 Versed I.V. 2 mg Russ Lilliam for sedation Isabel Mckeon RN 9:46:06 Heparin Bolus I.V. 4000 Russ Lilliam for veri fied units Isabel Mckeon anticoagulation with Dr. LINDA Hall 9:46:06 Lopressor I.V. 5 mg Russ Lilliam Per physician Isabel Mckeon RN Procedure Log Time Note 8:53:50 Signed procedure consent form obtained from patient. 8:53:52 Diagnostic Cath status Elective 8:53:53 Time tracking: Regular hours (M-F 7:00 - 5:00) 8:53:56 Plan of Care:Hemodynamics will remain stable., Cardiac rhythm will remain stable., Comfort level will be maintained., Respiratory function will remain adequate., Patient/ family verbilizes understanding of procedure., Procedure tolerated without complication., Recovers from procedure without complications.. 8:55:03 Patient Weight : 275.58 lbs 8:57:23 Patient allergic to Other allergyBYSTOLIC 8:58:33 Lab Result : BUN 24 mg/dl 8:58:33 Lab Result : Creatinine 1.2 mg/dl 8:58:33 Lab Result : Hematocrit 43.3 % 8:58:33 Lab Result : Hemoglobin 14.5 g/dl 9:00:00 Melany Helton RT(R) sent for patient. Start room use. 9:05:05 Patient received from Pre/Post Procedure Room to CCL 1 Alert and oriented. Tansferred to table in Supine position. 9:05:06 Warm blankets applied, and zaria hugger turned on for patient comfort. 9:05:07 Correct patient and procedure confirmed by team. 9:05:07 ECG and BP/O2 sat monitors applied to patient. 9:11:53 Vital chart was started 9:12:00 Baseline sample Acquired. 9:12:07 0.9% NaCl 100 ml/hr I.V. was administered by Lilliam Mckeon RN; used for procedure; 9:12:09 Rhythm: atrial fibrillation 9:12:14 Full Disclosure recording started 9:12:15 Oxygen 2 l/min etCO2 Nasal cannula was administered by Lilliam Mckeon RN; used for procedure; 9:12:21 Lidocaine 2% 20ml vial added to field was administered by Russ Hall MD; for local anesthetic; 9:12:23 H&P Date Dictated: 11/28/2018 New H&P dictated by physician.. 9:12:26 Heparin Flush Bag (1000units/500ml NS) 2 bags added to field was administered by Russ Hall MD; used for procedure; 9:15:11 Pre-procedure instructions explained to patient. 9:15:11 Pre-op teaching completed and patient verbalized understanding. 9:15:13 Family in patients room. 9:15:15 Patient NPO since Midnight. 9:15:32 Is patient on blood thinner?Yes 9:15:34 ACC The patient was administered the following blood thiners within the last 24 hours: ACCPlavix 9:15:37 Patient diabetic? Yes. 9:15:38 If diabetic: On Metformin? No 9:16:06 Previous problem with sedation/anesthesia? No ? 9:16:07 Snore? Yes 9:16:08 Sleep apnea? No 9:16:09 Deviated septum? No 9:16:10 Opens mouth fully? Yes 9:16:11 Sticks out tongue? Yes 9:16:13 Airway obstruction? No ? 9:16:17 Dentures? No ? 9:16:19 Modified Aldair's test Ulnar < 7 seconds 9:16:21 Patient pain scale 0/10 ?. 9:16:47 IV patent on arrival in left hand with 0.9% NaCl at [facility]. 9:16:52 Lab results completed and on chart. 9:16:55 Right Radial & Right Groin area was prepped with chlora-prep and draped in sterile fashion 9:16:56 Alarms reviewed by R. N. 9:16:56 Sharps counted by scrub and verified by R.N. 9:17:02 Use device set CATH PACK 9:17:03 ACIST Syringe (20852) opened to sterile field. 9:17:03 ACIST Hand Control (23929) opened to sterile field. 9:17:03 ACIST Manifold (08775) opened to sterile field. 9:17:04 Medline Cath Pack ([id number]) opened to sterile field. 9:17:04 Bag Decanter (2002) opened to sterile field. 9:17:05 DIAGNOSTIC WIRE .035 260cm J wire (298254) opened to sterile field. 9:17:26 CHOICE PT Extra Support 182cm wire ([id number]) opened to sterile field. 9:17:26 INFLATOR Merit BasixCompak ([id number]) opened to sterile field. 9:22:41 MBrace Wrist Support ([id number]) opened to sterile field. 9:22:41 SHEATH 6FR Slender (801060) opened to sterile field. 9:36:02 Radial Cocktail (Verapomil 2mg/Nitro 400mcg/Heparin 1500units) 1 syringe added to field was administered by Russ Hall MD; used for procedure; 9:36:32 Zero performed for pressure channel P1 9:36:41 GUIDE 6FR AR 2.0 catheter ([id number]) opened to sterile field. 9:36:49 --------ALL STOP TIME OUT------ 9:36:49 Final Timeout: patient, procedure, and site verified with staff and physician. All members of the team are in agreement. 9:36:50 Right Radial & Right Groin site verified by team. 9:36:53 Maximum allowable Isovue 300 dose 300ml. Physician notified. (300ml for normal creatinines. For patients with creatinine of 1.7 or higher multiply weight(kg) x 5 divided by creatinine.) 9:36:56 Fire Safety Assessment: A--An alcohol-based skin anteseptic being used preoperatively., C--Open oxygen or nitrous oxide is being used., D--An ESU, laser, or fiber-optic light is being used. 9:36:59 Physical assessment completed. ASA score P 2 - A patient with mild systemic disease as per Russ Hall MD. 9:37:02 Sedation plan: IV Moderate Sedation Medication:Versed, Fentanyl 9:37:38 Versed 2 mg I.V. was administered by Lilliam Mckeon RN; for sedation; 9:37:44 Fentanyl 50 mcg I.V. was administered by Lilliam Mckeon RN; for sedation; 9:43:46 Fentanyl 50 mcg I.V. was administered by Lilliam Mckeon RN; for sedation; 9:43:56 Versed 2 mg I.V. was administered by Lilliam Mckeon RN; for sedation; 9:44:14 Procedure started. 9:44:28 Local anesthetic to right radial artery with Lidocaine 2% by Russ Hall MD.INITIAL ACCESS ONLY 9:44:56 A 6 Fr Short sheath was inserted into the Right Radial artery 9:45:04 6 Fr AR 2 guide catheter was inserted over the wire 9:46:06 Heparin Bolus 4000 units I.V. was administered by Lilliam Mckeon RN; for anticoagulation; verified with Dr. Hall 9:46:06 Lopressor 5 mg I.V. was administered by Lilliam Mckeon RN; Per physician; 9:46:42 CHOICE ES 182 wire advanced. 9:46:44 Wire advanced across lesion. 9:48:15 Inflate balloon Inflation number: 1 A INTEGRITY RX 4.0 x 09 stent ([id number]) was prepped and advanced across the Prox RCA, then inflated to 13 ALIDA for 0:10 (min:sec). 9:48:17 Stent catheter was removed intact over wire. 9:48:18 Wire removed. 9:48:19 Guide catheter removed. 9:48:38 Procedure ended.(Physican Out) 9:49:01 Fluoroscopy time 01.50 minutes. 9:49:05 Fluoroscopy dose: 165 mGy 9:49:05 Flurop Dose total: 165 9:49:09 Contrast amount:Isovue 300 33ml. 9:49:12 Sharps counted by scrub and verified by R.N. 9:49:43 TR BAND Large ([id number]) opened to sterile field. 9:49:47 Sheath removed intact; hemostasis achieved with Mechanical Compression to the Right Radial artery. 9:49:53 TR band inflated with 10cc of air. 9:49:57 Post-procedure physical assessment completed. ASA score P 2 - A patient with mild systemic disease as per Russ Hall MD. 9:49:59 Post procedure rhythm: unchanged. 9:50:01 Estimated blood loss: 10 ml 9:50:02 Post procedure instruction explained to patient.Patient verbalizes understanding. 9:50:03 Patient needs reinforcement of post procedure teaching. 9:51:44 Procedure and supply charges have been captured, reviewed, submitted and are correct. 9:51:46 Procedure Complication : No complications 9:52:53 Vital chart was stopped 9:52:54 See physician's report for complete and final results. 9:52:57 Report given to Pre/Post Procedure Room. 9:52:59 Patient transfered to Pre/Post Procedure Room with Bed. 9:53:30 Procedure ended. 9:53:30 Full Disclosure recording stopped 9:53:33 End room use (Document Last) Intervention Summary Intervention Notes Time ActionType Lesion and Equipment Action# Pressure Duration Attributes Used 9:48:15 Inflate Prox RCA INTEGRITY RX 1 13 00:10 balloon 4.0 x 09 stent ([id number]) Device Usage Item Name Manufacture Quantity Catalog Number Hospital Part Current Mini [facility] Lot# / Charge Number Stock Stock Serial# Code ACIST Acist 1 47185 524369 030205 [id number] 20 Syringe [employer] (10964) Systems Inc ACIST Hand Acist 1 81126 874131 463787 936357 5 Control [employer] (37135) Systems Inc ACIST Acist 1 33549 010950 003154 546678 5 Manifold Medical (37117) Systems Inc Medline Cath Medline 1 [id number] 264269 21929 454982 5 Pack ([id number]) Bag Decanter Microtek 1 2001S 347885 17875 664428 5 (2001S) Medical Inc. DIAGNOSTIC St [place] 1 240158 031437 019763 790831 30 WIRE .035 260cm J wire (298676) CHOICE PT [place]wood 1 [id number] 822905 920600 554333 5 Extra Scientific Support 182cm wire ([id number]) INFLATOR Merit 1 DM2481 085481 568219 171442 15 Merit Medical BasixCompak (JS7622) MBrace Wrist Advanced 1 140-0250-00 760599 22974 360731 5 Support Vascular ([id number]) Dynamics SHEATH 6FR Terumo 1 [id number] 746677 994503 241240 5 Slender (80-1060) GUIDE 6FR AR Medtronic 1 [id number] 599738 12173 808586 1 2.0 catheter (FI1NC41) INTEGRITY RX Medtronic 1 [id number] 702927 752999 264370 5 [id number] 4.0 x 09 stent ([id number]) TR BAND Terumo 1 [id number] 353025 968330 680064 40 Large ([id number]) Signature Audit [place] Stage Time Signature Unsigned Intra-Procedure 11/28/2018 Melany Helton 9:54:31 AM RT(R) Signatures Monitor : Melany Helton Signature : RT Date : Time : [place] [id number] [place] [address]
--- NOTE | ~2018-11-28 | HP ---
PATIENT: MICKEY TOMLINSON MEDICAL RECORD: [id number] ACCOUNT: [id number] LOCATION:OLIVE : 49 ADMISSION DATE: 11/28/18 PCP: ELVIA WALLACE MD HISTORY AND PHYSICAL EXAMINATION ADMITTING DIAGNOSES: 1. Angina. 2. Coronary artery disease. 3. Atrial fibrillation. HISTORY OF PRESENT ILLNESS: This is a gentleman who presents with new onset atrial fibrillation and angina, found to have disease of the circumflex and RCA, underwent successful PTCA stent of circumflex, now brought back for PTCA stent of the RCA. PHYSICAL EXAMINATION: GENERAL APPEARANCE: Well-nourished, well-developed, appears stated age. Level of distress, comfortable. PSYCHIATRIC: Mental status, alert, normal affect. Orientation, oriented to time, place and person. EYES: Lids and conjunctiva, noninjected. No discharge, no pallor. ENT: Lips, teeth, gums, normal dentition. Oropharynx, no cyanosis, no pallor. NECK: Carotid arteries, bilateral normal upstroke, no bruits, no thrills. JUGULAR VEINS: No jugular venous pressure or distention. CERVICAL LYMPH NODES: Nontender, nonenlarged. THYROID: Not enlarged. Nontender. No nodules. LUNGS: Respiratory effort, unlabored. CHEST: Normal curvature. No thoracic deformity. No chest wall tenderness. Percussion, resonant. Auscultation, clear. No wheezes, no rales, no rhonchi. CARDIOVASCULAR: Precordial exam, nondisplaced. No heaves or pericardial thrills. Rate and rhythm, regular. Heart sounds, normal S1, normal S2. No S3, no gallop, no rub. Systolic murmur, not heard. Diastolic murmur, not heard. EXTREMITIES: No cyanosis, no edema. Peripheral pulses, full and equal in all extremities, except as noted. No bruits appreciated. ABDOMEN: Soft, nondistended. Normal aorta. No bruit. Nontender. No masses. Liver, nontender, no hepatomegaly. Spleen, nontender, no splenomegaly. MUSCULOSKELETAL: No joint tenderness. No joint swelling. No erythema. NEUROLOGICAL: Normal gait, normal strength, normal tone. SKIN: Warm and dry. OVERALL IMPRESSION: Anginal symptomatology with disease of the right coronary artery. We will proceed with transcatheter revascularization of the right coronary artery. TRANSINT:[id number] Voice Confirmation ID: [id number] DOCUMENT ID: [id number] HISTORY AND PHYSICAL [id number] MICKEY TOMLINSON JEFFREY MD CC: [id number] DICTATION DATE: 11/28/18357 MECHANICAL ENGINEERING TECHNICIAN: 11/28/18 0408 [facility] [address] [place] [id number]
--- NOTE | ~2018-11-28 | OP ---
PATIENT NAME: MICKEY TOMLINSON MEDICAL RECORD: [id number] :49 LOCATION:D.CAT ADMISSION DATE: SURGEON: EMANI BHAT MD DATE OF OPERATION: 11/28/2018 PROCEDURES: 1. PTCA stent RCA. 2. Selective coronary angiography. OF PROCEDURE IN DETAIL: After informed consent was obtained and after detailed description of risks, benefits as well as alternative therapies, the patient elected to proceed with angiogram and angioplasty. The right radial area was prepped and draped in normal sterile fashion. Right radial artery was cannulated via modified Seldinger technique with placement of 6-Luxembourger sheath. All catheters exchanged through this sheath. FINDINGS: The ostium of the RCA was greater than 70% stenosis addressed with a 4.0 x 9 mm Integrity stent. Result was 0% residual stenosis. OVERALL IMPRESSION: Successful PTCA stent of the RCA ostium going from 80% initial stenosis to 0% residual. TRANSINT:[id number] Voice Confirmation ID: [id number] DOCUMENT ID: [id number] EMANI BHAT MD CC: [id number] DICTATION DATE: 11/28/18 0951 SPRAY PAINTER HELPER: 11/28/18 1247 [facility] [address] [place] [address]
[~2018-11-28 08:13] MED LIST changes: +ASPIRIN81 MG PO; +BETAPACE 80 MG80 MG PO; +COZAAR50 MG PO; +GLYBURIDE5 M1 PO; +JANUMET 50-5001 EAC1 PO
[2018-11-28 08:33] VITALS: BP 127/76; Ht 172.7 cm; Wt 124.5 kg
[2018-11-28 08:43] LABS: BASOPHILS 0.3 % (0-2); EOSINOPHILS 3.8 % (0-7); HEMATOCRIT 43.3 % (42.0-54.0); HEMOGLOBIN 14.5 g/dL (13.5-17.5); IMMATURE GRANULOCYTES 0.2 % (0-5); LYMPHOCYTES 13.4 % (15-50); MCH 29.2 pg (26.0-34.0); MCHC 33.5 g/dL (31.0-37.0); MCV 87.1 fL (80.0-100.0); MEAN PLATELET VOLUME 8.9 fL (7.4-10.4); MONOCYTES 5.6 % (2-11); NEUTROPHILS 76.7 % (40-80); PLATELET COUNT 158 10x3/uL (130-400); RBC 4.97 10x6/uL (4.20-6.10); RDW 14.8 % (11.5-14.5); WBC 6.6 10x3/uL (4.8-10.8)
[2018-11-28 08:51] LABS: ANION GAP 10.3 mmol/L (8-16); CALCIUM 8.8 mg/dL (8.5-10.1); CARBON DIOXIDE 28.7 mmol/L (21.0-32.0); CREATININE - SERUM 1.2 mg/dL (0.6-1.3)
--- NOTE | 2018-11-28 10:20 | NUR ---
2L NC, NO RESP DISTRESS. RIGHT WRIST TR BAND CDI, NO BLEEDING OR HEMATOMA NOTED. NO C/O PAIN OR NAUSEA. VSS. FAMILY AT BEDSIDE, CALL LIGHT WITHIN REACH.
--- NOTE | 2018-11-28 10:50 | NUR ---
RESTING QUIETLY WITH EYES CLOSED. RIGHT WRIST TR BAND CDI, NO BLEEDING OR HEMATOMA NOTED. 2L NC WITH NO RESP DISTRESS. DENIES ANY NEEDS. VSS. WILL CONTINUE TO MONITOR.
--- NOTE | 2018-11-28 11:05 | NUR ---
CONTINUES TO REST COMFORTABLY WITH NO C/O. RIGHT WRIST TR BAND CDI, NO BLEEDING OR HEMATOMA NOTED. 2L NC WITH NO RESP DISTRESS. VSS. WILL CONTINUE TO MONITOR.
--- NOTE | 2018-11-28 11:35 | NUR ---
RIGHT WRIST TR BAND CDI, NO BLEEDING OR HEMATOMA NOTED. 2L NC WITH NO RESP DISTRESS. DENIES ANY NEEDS OR C/O. VSS. CALL LIGHT WITHIN REACH.
--- NOTE | 2018-11-28 12:05 | NUR ---
SIPPING ON DRINK AND EATING PEANUT BUTTER CRACKERS WITH NO C/O NAUSEA. RIGHT WRIST TR BAND CDI, NO BLEEDING OR HEMATOMA NOTED. NO NEEDS VOICED. VSS. CALL LIGHT WITHIN REACH.
--- NOTE | 2018-11-28 13:05 | NUR ---
3CC OF AIR REMOVED FROM TR BAND WITH NO BLEEDING NOTED. VSS. WILL CONTINUE TO MONITOR.
--- NOTE | 2018-11-28 13:20 | NUR ---
3CC OF AIR REMOVED FROM TR BAND WITH NO BLEEDING NOTED.
--- NOTE | 2018-11-28 13:40 | NUR ---
2CC OF AIR REMOVED FROM TR BAND WITH NO BLEEDING NOTED. LEFT PIV D/C'D WITH CATHETER INTACT, BAND AID TO SITE. UP TO BEDSIDE TO GET DRESSED.
--- NOTE | 2018-11-28 13:50 | NUR ---
REMAINING AIR REMOVED FROM TR BAND WITH NO BLEEDING NOTED. DRESSING PLACED TO SITE. DISCHARGE INSTRUCTIONS GIVEN TO PT AND ALONG WITH [employer]AREL[employer] SAMPLES. FOLLOW UP APPT MADE FOR 3 WEEKS OUT.
--- NOTE | 2018-11-28 14:00 | NUR ---
TAKEN OUT VIA WHEELCHAIR BY CATH ANATOMIC PATHOLOGY MANAGER WITH STOP AT RESTROOM. LEFT FACILITY WITH FAMILY AND ALL PERSONAL BELONGINGS.
== END 2018-11-28 14:00 | disposition home or self-care (01) ==
LOC: D.CATH 08:13
PROVIDERS: ATTEND Internal Medicine Interventional Cardiology
DX: I25.110 Atherosclerotic heart disease of native coronary artery with unstable angina pectoris (principal)

== ENCOUNTER 2019-01-01 10:13 | Outpatient (CLI) | payer MEDICARE, OTHER ==
--- NOTE | ~2019-01-01 | HEMODYNAMI ---
PATIENT:MICKEY TOMLINSON MEDICAL RECORD: [id number] : 49 LOCATION:D.CAT ADMISSION DATE: 01/01/19 Generatedon:01/01/201911:23 Patient name: MICKEY TOMLINSON Patient #: [id number] SSN: [id number] : 1945 Date of study: 01/01/2019 Page: Of Hemodynamic Procedure Report Patient Data Patient Demographics Procedure consent was obtained First Name: MICKEY Gender: Male Last Name: BUSHRA : 1945 Middle Initial: MARY Age: 73 year(s) Patient #: [id number] Race: SSN: [id number] Additional ID: [id number] Contact details [address]: [address] [place] [address] State: [place] City: [place] Zip code: [address] Past Medical History Allergies Allergen Reaction Date Comments Reported Other allergy 01/18/2017 Bystolic Other allergy 11/28/2018 BYSTOLIC Admission Admission Data Admission Date: 01/01/2019 Admission Time: 10:13 Procedure Procedure Types Cath Procedure Diagnostic Procedure Cardioversion External Procedure Description Procedure Date Procedure Date: 01/01/2019 Procedure Start Time: 11:09 Procedure End Time: 11:12 Procedure Staff Name Function Russ Hall MD Performing Physician Angélica Del Valle RT Monitor Ru Edge RT Scrub Lilliam Mckeon RN Nurse Nelly Enciso CRNA Additional personnel Procedure Data Cath Procedure Fluoroscopy Diagnostic fluoroscopy Total fluoroscopy Time: 0 time: 0 min min Diagnostic fluoroscopy Total fluoroscopy dose: 0 dose: 0 mGy mGy Contrast Material Contrast Material Type Amount (ml) Isovue 370 0 Estimated blood loss: 0 ml Procedure Complications No complications Procedure Medications Medication Administration Route Dosage 0.9% NaCl I.V. ml/hr Oxygen etCO2 Nasal cannula 2 l/min Refer to Anesthesia Notes for Sedation Medications Hemodynamics Rest Heart Rate: 108 (bpm) Snapshots Pre Cath Intra NCS Post Cath Vital Signs Time Heart Resp SPO2 etCO2 NIBP (mmHg) Rhythm Pain Sedation Rate (ipm) (%) (mmHg) Status Level (bpm) 11:03:41 85 24 100 29.1 129/96(106) A-Fib 0 (11) 10(A) , No pain 11:08:40 76 22 100 38 Measuring A-Fib 0 (11) 10(A) , No pain 11:10:24 53 26 100 12 92/52(77) SB 0 (11) 5(A) , No pain 11:19:01 88 39 99 13.4 123/71(104) SB 0 (11) 10(A) , No pain Medications Time Medication Route Dose Verified Delivered Reason Notes Effective ness by by 11:03:28 0.9% NaCl I.V. ml/hr Russ Orellanayla used for Isabel Mckeon support clerk 11:03:35 Oxygen etCO2 2 Russ Batesa used for Nasal l/min Isabel Mckeon procedure cannula RN 11:03:46 Refer to Russ Vyas Anesthesia Isabel Mckeon Notes for RN Sedation Medications Procedure Log Time Note 10:40:59 Lilliam Mckeon RN sent for patient. Start room use. 10:59:21 Diagnostic Cath Status : Elective 11:00:11 Time tracking: Regular hours (M-F 7:00 - 5:00) 11:00:16 Plan of Care:Hemodynamics will remain stable., Cardiac rhythm will remain stable., Comfort level will be maintained., Respiratory function will remain adequate., Patient/ family verbilizes understanding of procedure., Procedure tolerated without complication., Recovers from procedure without complications.. 11:00:21 Patient received from Pre/Post Procedure Room to CCL 1 Alert and oriented. Tansferred to table in Supine position. 11:00:22 Warm blankets applied, and zaria hugger turned on for patient comfort. 11:00:23 Correct patient and procedure confirmed by team. 11:00:24 Signed procedure consent form obtained from patient. 11:00:26 ECG and BP/O2 sat monitors applied to patient. 11:01:36 Nelly Enciso CRNA present and monitoring patient for TIVA. 11:01:40 Quick combo pads placed on patients chest and back. 11:01:49 Quick Combo opened to sterile field. 11:02:26 Vital chart was started 11:02:43 Baseline sample Acquired. 11:02:57 Rhythm: atrial fibrillation 11:02:59 Full Disclosure recording started 11:03:04 H&P Date Dictated: 01/01/2019 Within 30 days and on chart., H&P Addendum completed by physician on day of procedure. (MUST COMPLETE FOR ALL OUTPATIENTS). 11:03:05 Pre-procedure instructions explained to patient. 11:03:06 Pre-op teaching completed and patient verbalized understanding. 11:03:07 Family in waiting room. 11:03:09 Patient NPO since Midnight. 11:03:11 Is the patient allergic to Iodine/contrast media? No. 11:03:13 Was the patient premedicated? No 11:03:28 0.9% NaCl ml/hr I.V. was administered by Lilliam Mckeon RN; used for procedure; 11:03:35 Oxygen 2 l/min etCO2 Nasal cannula was administered by Lilliam Mckeon RN; used for procedure; 11:03:46 Refer to Anesthesia Notes for Sedation Medications was administered by Lilliam Mckeon RN; ; 11:05:02 Is patient on blood thinner?Yes 11:05:06 ACC The patient was administered the following blood thiners within the last 24 hours: ACCPlavix, Xarelto 11:05:08 Patient diabetic? Yes. 11:05:09 If diabetic: On Metformin? No 11:05:11 Previous problem with sedation/anesthesia? No ? 11:05:12 Snore? Yes 11:05:14 Sleep apnea? No 11:05:14 Deviated septum? No 11:05:15 Opens mouth fully? Yes 11:05:16 Sticks out tongue? Yes 11:05:18 Airway obstruction? No ? 11:05:21 Dentures? No ? 11:05:30 Patient pain scale 0/10 ?. 11:05:39 IV patent on arrival in left forearm with 0.9% NaCl at [facility]. 11:05:41 Lab results completed and on chart. 11:05:49 Alarms reviewed by RMady N. 11:05:49 Sharps counted by scrub and verified by R.N. 11:05:51 Physician arrived 11:05:51 --------ALL STOP TIME OUT------ 11:05:52 Final Timeout: patient, procedure, and site verified with staff and physician. All members of the team are in agreement. 11:06:00 Maximum allowable Isovue 370 dose 300ml. Physician notified. (300ml for normal creatinines. For patients with creatinine of 1.7 or higher multiply weight(kg) x 5 divided by creatinine.) 11:06:05 Fire Safety Assessment: A--An alcohol-based skin anteseptic being used preoperatively., C--Open oxygen or nitrous oxide is being used., D--An ESU, laser, or fiber-optic light is being used. 11:06:08 Physical assessment completed. ASA score P 2 - A patient with mild systemic disease as per Russ Hall MD. 11:06:12 Sedation plan: TIVA Medication:Propofol 11::02 Procedure started. 11:: Defibrillator synced and charged to 275 Joules. 11:09:21 Shock delivered. 11:09:32 Patient cardioverted to sinus rhythm . 11:10:27 Procedure ended.(Physican Out) 11::59 Fluoroscopy time 00.00 minutes. 11:11:02 Fluoroscopy dose: 0 mGy 11:: Flurop Dose total: 0 11:11: Contrast amount:Isovue 370 0ml. 11:11:07 Sharps counted by scrub and verified by R.N. 11:11:23 Post procedure rhythm: sinus rhythm 11::27 Estimated blood loss: 0 ml 11:11:30 Post procedure instruction explained to patient.Patient verbalizes understanding. 11:11:30 Patient needs reinforcement of post procedure teaching. 11:11:36 Procedure and supply charges have been captured, reviewed, submitted and are correct. 11:11:41 Procedure Complication : No complications 11::44 Vital chart was stopped 11::44 See physician's report for complete and final results. 11:11:56 Report given to Pre/Post Procedure Room. 11:11:59 Patient transfered to Pre/Post Procedure Room with Stretcher. 11:12:05 Procedure ended. 11:12:05 Full Disclosure recording stopped 11:20:09 patient converted to atrial flutter 11:20:14 End room use (Document Last) Device Usage Item Manufacture Quantity Catalog Hospital Part Current Minimal Lot# / Name Number Charge Number Stock Stock Veronica al# [employer] 1 [id number] Combo Signature Audit [place] Stage Time Signature Unsigned Intra-Procedure 01/01/2019 Angélica Del Valle 11:23:30 AM RT(R) Signatures Monitor : Angélica Del Valle RT Signature : Date : Time : [place] [place] [address]
[2019-01-01] MEDS ORDERED: XARELTO20 MG PO (10:26)
[2019-01-01 10:33] VITALS: BP 130/74; BMI 40.2
[2019-01-01 10:45] LABS: BASOPHILS 0.3 % (0-2); EOSINOPHILS 4.1 % (0-7); HEMATOCRIT 42.7 % (42.0-54.0); IMMATURE GRANULOCYTES 0.5 % (0-5); LYMPHOCYTES 18.9 % (15-50); MCH 28.8 pg (26.0-34.0); MCHC 32.8 g/dL (31.0-37.0); MCV 87.9 fL (80.0-100.0); MEAN PLATELET VOLUME 9.5 fL (7.4-10.4); MONOCYTES 5.8 % (2-11); NEUTROPHILS 70.4 % (40-80); PLATELET COUNT 137 10x3/uL (130-400); RBC 4.86 10x6/uL (4.20-6.10); RDW 14.4 % (11.5-14.5); WBC 6.4 10x3/uL (4.8-10.8)
[2019-01-01 10:50] LABS: CALCIUM 8.5 mg/dL (8.5-10.1); CREATININE - SERUM 1.3 mg/dL (0.6-1.3)
[2019-01-01 10:56] LABS: INR 1.54 (0.85-1.17); PROTIME 17.9 SECONDS (11.6-15.0)
--- NOTE | 2019-01-01 11:29 | NUR ---
PT ARRIVED BY STRETCHER. FAMILY AT BEDSIDE. PLACED ON MONITOR. STILL IN A-FIB. RATE 81. BP STABLE. CALL LIGHT WITHIN REACH. PT NOT READY TO HAVE ANYTHING TO EAT/DRINK YET. WILL CONTINUE TO MONITOR.
--- NOTE | 2019-01-01 11:45 | NUR ---
FAMILY AT BEDSIDE. PERLITA ROUNDED AND SPOKE WITH PT AND FAMILY. VSS. PT STILL IN A-FIB.
--- NOTE | 2019-01-01 12:05 | NUR ---
LEFT FA PIV D/C'D WITH CATH TIP INTACT. PT TOLERATED WELL. INSTRUCTED PT TO GET UP AND DRESSED.
--- NOTE | 2019-01-01 12:12 | NUR ---
PT AMBULATED TO RESTROOM. VOIDED WITHOUT DIFFICULTY. DENIES PAIN/NAUSEA.
--- NOTE | 2019-01-01 12:19 | NUR ---
DISCUSSED DISCHARGE INSTRUCTIONS WITH PT AND PT'S FAMILY. THEY VOICED UNDERSTANDING.
--- NOTE | 2019-01-01 12:30 | NUR ---
PT TAKEN OUT TO CAR BY WHEELCHAIR. NO S/S OF DISTRESS NOTED. ALL BELONGINGS AND PAPERWORK IN HAND.
--- NOTE | 2019-01-04 11:28 | OP ---
PATIENT NAME: MICKEY TOMLINSON MEDICAL RECORD: [id number] :49 LOCATION:D.CAT ADMISSION DATE: SURGEON: EMANI BHAT MD DATE OF OPERATION: 01/01/2019 PROCEDURE: DC cardioversion. INDICATION: Atrial fibrillation. PROCEDURE IN DETAIL: IV conscious sedation was per anesthesia. Continuous heart rate, O2 saturation, blood pressure monitoring all undertaken, all of which remained stable. He received 1 shock restoring sinus rhythm. OVERALL IMPRESSION: Successful DC cardioversion from atrial fibrillation to sinus rhythm. TRANSINT:[id number] Voice Confirmation ID: [id number] DOCUMENT ID: [id number] EMANI BHAT MD at 1128 CC: [id number] DICTATION DATE: 01/01/19 1111 CLIENT SALES AND SERVICE OFFICER: 01/01/19 1322 DEP CLI 01/01/19 [facility] [address] [place] [address]
== END 2019-01-01 12:30 | disposition home or self-care (01) ==
LOC: D.CATH 10:13
PROVIDERS: ATTEND Internal Medicine Interventional Cardiology
DX: I48.91 Unspecified atrial fibrillation (principal); I25.10 Atherosclerotic heart disease of native coronary artery without angina pectoris

== ENCOUNTER 2019-08-17 13:50 | Inpatient (IN) | payer MEDICARE, OTHER ==
[~2019-08-17] VITALS: Ht 172.7 cm; Wt 119.5 kg
[2019-08-17] MEDS ORDERED: ZOCOR40 MG PO (14:20)
[2019-08-17 14:32] VITALS: BP 151/67
[2019-08-17 14:33] LABS: BASOPHILS 0.3 % (0-2); EOSINOPHILS 4.4 % (0-7); HEMATOCRIT 32.6 % (42.0-54.0); HEMOGLOBIN 9.9 g/dL (13.5-17.5); IMMATURE GRANULOCYTES 0.2 % (0-5); LYMPHOCYTES 16.2 % (15-50); MCHC 30.4 g/dL (31.0-37.0); MCV 82.3 fL (80.0-100.0); MEAN PLATELET VOLUME 9.2 fL (7.4-10.4); MONOCYTES 7.3 % (2-11); NEUTROPHILS 71.6 % (40-80); PLATELET COUNT 277 10x3/uL (130-400); RBC 3.96 10x6/uL (4.20-6.10); RDW 15.7 % (11.5-14.5); WBC 6.4 10x3/uL (4.8-10.8)
[2019-08-17 14:43] LABS: APTT 26.1 SECONDS (22.8-39.4); INR 1.01 (0.85-1.17); PROTIME 13.3 SECONDS (11.6-15.0)
[2019-08-17 14:45] LABS: D-DIMER-QUANTITATIVE 3.52 ug/mLFEU (0.20-0.54)
[2019-08-17 14:48] LABS: CALC OSMOLALITY 287 mosm/kg (275-300); CALCIUM 8.8 mg/dL (8.5-10.1); CARBON DIOXIDE 28.2 mmol/L (21.0-32.0); CHLORIDE - SERUM 107 mmol/L (98-107); CREATININE - SERUM 1.3 mg/dL (0.6-1.3); GLUCOSE 100 mg/dL (74-106); POTASSIUM - SERUM 5.2 mmol/L (3.5-5.1); SODIUM 141 mmol/L (136-145); UREA NITROGEN 32 mg/dL (7-18); eGFR NON AFRICAN AMERICAN 58 mL/min (90-120)
[2019-08-17 15:00] VITALS: BP 172/78
[2019-08-17 15:06] LABS: ALBUMIN 3.1 g/dL (3.4-5.0); ALKALINE PHOSPHATASE 70 U/L (46-116); ALT (SGPT) 21 U/L (10-68); BILIRUBIN - TOTAL 0.45 mg/dL (0.2-1.3); CKMB 0.5 U/L (0.0-3.6); CREATINE KINASE 79 UL (21-232); PRO BNP 1693 pg/mL (0-125); PROTEIN - SERUM 7.7 g/dL (6.4-8.2)
[2019-08-17 15:08] LABS: TROPONIN-I < 0.017 ng/mL (0.000-0.060)
--- NOTE | 2019-08-17 15:32 | NUR ---
URINE OUTPUT 650MLS
[2019-08-17 16:05] VITALS: BP 123/60
--- NOTE | 2019-08-17 16:28 | NUR ---
PT TO CT VIA STRETCHER
--- NOTE | 2019-08-17 17:31 | NUR ---
DIET TRAY ORDERED FOR PT
--- NOTE | 2019-08-17 17:40 | NUR ---
URINE OUTPUT 650MLS
[2019-08-17 17:41] VITALS: BP 129/55
--- NOTE | 2019-08-17 18:03 | NUR ---
PT GIVEN A DIET TRAY; UPDATED ON PLAN OF CARE AND DELAYS IN CARE; WILL CONTINUE TO MONITOR. SPOUSE AT BEDSIDE
--- NOTE | 2019-08-17 19:53 | NUR ---
ADMIT TO ROOM 2117 FROM ER AT 1845. ALERT/ORIENTED. ADMISSION HISTORY AND ASSESSMENT COMPLETED. HOME MEDS REVIEWED. PT RESTING IN BED. TELEMETRY INITIATED. PLAN OF CARE INITIATED.
[2019-08-17 20:00] VITALS: BP 130/65
--- NOTE | 2019-08-17 23:15 | NUR ---
PT RESTING IN BED. BUMEX DRIP AT 2.5MG/HR NOW INFUSING TO LEFT HAND PIV. PT HUNGRY. PROVIDED SANDWICH TRAY. CALL LIGHT IN REACH. CPOC.
[2019-08-17 23:38] VITALS: BP 134/60
[2019-08-18 00:45] LABS: CKMB 0.5 U/L (0.0-3.6); CREATINE KINASE 38 UL (21-232)
[2019-08-18 00:46] LABS: TROPONIN-I < 0.017 ng/mL (0.000-0.060)
[2019-08-18 00:55] VITALS: BP 130/65; BMI 41.7
[2019-08-18 04:36] VITALS: BP 100/43
[2019-08-18 06:04] LABS: BASOPHILS 0.5 % (0-2); EOSINOPHILS 4.6 % (0-7); HEMATOCRIT 33.6 % (42.0-54.0); HEMOGLOBIN 10.1 g/dL (13.5-17.5); IMMATURE GRANULOCYTES 0.3 % (0-5); LYMPHOCYTES 18.1 % (15-50); MCH 24.9 pg (26.0-34.0); MCHC 30.1 g/dL (31.0-37.0); MONOCYTES 8.7 % (2-11); NEUTROPHILS 67.8 % (40-80); PLATELET COUNT 269 10x3/uL (130-400); RBC 4.05 10x6/uL (4.20-6.10); RDW 15.5 % (11.5-14.5); WBC 6.4 10x3/uL (4.8-10.8)
[2019-08-18 06:34] LABS: CALC OSMOLALITY 292 mosm/kg (275-300); CALCIUM 9.1 mg/dL (8.5-10.1); CARBON DIOXIDE 33.4 mmol/L (21.0-32.0); CHLORIDE - SERUM 106 mmol/L (98-107); CKMB 0.4 U/L (0.0-3.6); CREATINE KINASE 33 UL (21-232); CREATININE - SERUM 1.6 mg/dL (0.6-1.3); GLUCOSE 107 mg/dL (74-106); SODIUM 143 mmol/L (136-145); UREA NITROGEN 36 mg/dL (7-18); eGFR NON AFRICAN AMERICAN 45 mL/min (90-120)
[2019-08-18 06:37] LABS: POTASSIUM - SERUM 4.3 mmol/L (3.5-5.1); TROPONIN-I < 0.017 ng/mL (0.000-0.060)
--- NOTE | 2019-08-18 07:15 | NUR ---
RECEIVED PT IN BD EYES CLOSED RESP UNLABORED SKIN W/D COLOR WNL NAD NOTED
[2019-08-18 08:00] VITALS: BP 128/50
[2019-08-18 09:33] LABS: CHOL - HDL RATIO 3.1 ratio (2.3-4.9); LDL-HDL RATIO 1.7 ratio (1.5-3.5)
[2019-08-18 12:00] VITALS: BP 126/69
[2019-08-18 16:00] VITALS: BP 111/54
--- NOTE | 2019-08-18 20:00 | NUR ---
REPORT RECIEVED AND INITIAL ROUNDS COMPLETED. PT RESTING IN BED WITH NO DISTRESS. SB/55 PER TELEMETRY. BUMEX DRIP AT 3.5ML/HR INFUSING TO RFA. WILL KEEP NPO AFTER MIDNIGHT, BUT PT WILL NOT SIGN ANY CONSENTS UNTIL HE KNOWS THAT DR BHAT WILL BE DOING HIS PROCEDURE. CPOC.
[2019-08-18 20:30] VITALS: BP 120/57
--- NOTE | 2019-08-18 22:51 | NUR ---
BEDTIME MEDS GIVEN. PT UP AND ABOUT IN ROOM. IV BUMEX INFUSING. PT DECLINES TO SIGN ANY CONSENT FORMS FOR AM CATH UNTIL HE SEES DR BHAT. HE ALSO SAID HE WAS TOLD HE WAS HAVING A LEXISCAN IN THE AM, NO ORDER NOTED. INSTRUCTED PT ON BEING NPO UNTIL AM TO SEE PLAN OF ACTION PER DR BHAT.
[2019-08-19 00:20] VITALS: BP 98/45
[2019-08-19 04:30] VITALS: BP 118/54
--- NOTE | 2019-08-19 05:20 | NUR ---
NO CHANGE FROM INITIAL SHIFT ASSESSMENT. CPOC. CALL LIGHT IN REACH.
[2019-08-19 05:30] LABS: BASOPHILS 0.4 % (0-2); EOSINOPHILS 5.3 % (0-7); HEMATOCRIT 33.2 % (42.0-54.0); HEMOGLOBIN 9.8 g/dL (13.5-17.5); IMMATURE GRANULOCYTES 0.4 % (0-5); LYMPHOCYTES 22.6 % (15-50); MCH 24.3 pg (26.0-34.0); MCHC 29.5 g/dL (31.0-37.0); MCV 82.2 fL (80.0-100.0); MEAN PLATELET VOLUME 8.9 fL (7.4-10.4); MONOCYTES 10.1 % (2-11); NEUTROPHILS 61.2 % (40-80); PLATELET COUNT 243 10x3/uL (130-400); RBC 4.04 10x6/uL (4.20-6.10); RDW 15.5 % (11.5-14.5)
[2019-08-19 06:04] LABS: ALBUMIN 3.1 g/dL (3.4-5.0); ANION GAP 11.8 mmol/L (8-16); BILIRUBIN - TOTAL 0.33 mg/dL (0.2-1.3); CALCIUM 8.4 mg/dL (8.5-10.1); MAGNESIUM - SERUM 1.9 mg/dL (1.8-2.4); POTASSIUM - SERUM 3.8 mmol/L (3.5-5.1); PROTEIN - SERUM 7.3 g/dL (6.4-8.2)
[2019-08-19 06:10] LABS: CREATININE - SERUM 2.2 mg/dL (0.6-1.3)
[2019-08-19 08:09] VITALS: BP 107/47
--- NOTE | 2019-08-19 09:50 | NUR ---
CHRISTIANOMEX GTT DCD. REFUSES LHC WITH DR. LEAVITT. DR. OLSEN TO SEE.
[2019-08-19 11:32] VITALS: BP 104/53
--- NOTE | 2019-08-19 12:18 | CN ---
PATIENT NAME:MICKEY TOMLINSON MEDICAL RECORD: [id number] : 49 LOCATION:[place] D.2117 ADMIT DATE: 08/17/19 ACCOUNT: [id number] CONSULTING PHYSICIAN: MARY ELLEN LEAVITT MD REFERRING PHYSICIAN: DREW MICHELLE MD DATE OF CONSULTATION: 08/18/2019 HISTORY OF PRESENT ILLNESS: A 73-year-old gentleman with no known history of coronary artery disease, has history of hypertension, hyperlipidemia, paroxysmal atrial fibrillation, admitted with chest tightness and pressure, described as a heaviness as well as marked dyspnea on exertion, rapid progression class IV. He has a history of atrial ablation, which has resulted in a good rhythm control, scheduled for a Cardiolite stress testing later on this week; however, had marked progression to rest symptomology. We are asked to see him concerning his cardiovascular status. PAST MEDICAL HISTORY: Includes: 1. History of coronary artery disease. 2. Hypertension. 3. Dyslipidemia. 4. Paroxysmal atrial fibrillation. 5. Diabetes mellitus. ALLERGIES: BYSTOLIC. MEDICATIONS: Include Glyburide 5 mg p.o. b.i.d., sotalol 80 mg p.o. b.i.d., simvastatin 40 every day, losartan 50/12.5 every day, Plavix 75 every day. SOCIAL HISTORY: Nonsmoker, nondrinker. Easily takes care of all his ADLs. No set exercise program REVIEW OF SYSTEMS: The patient reports easy bruising but reports no swollen glands. The patient reports no fever, no night sweats, no significant weight gain, no significant weight loss. No significant exercise tolerance. The patient reports no dry eyes, no irritation, no vision change. Patient reports no difficulty hearing and no ear pain. Patient reports no frequent nose bleeds or nose and sinus problems. Patient reports on arm pain on exertion. No shortness of breath while lying down. No history of heart murmur. Patient reports no cough, no wheezing or coughing up blood. Patient reports no abdominal pain, no vomiting. Normal appetite. No diarrhea and not vomiting blood. No nausea and no constipation. Patient reports no incontinence. No difficulty urinating. No hematuria. No increased frequency. Patient reports no muscle aches. No weakness, no arthralgias, no back pain. No swelling of the extremities. Patient reports no abnormal mole, no jaundice, no rashes. Reports no loss of consciousness. No weakness and no numbness. No seizures, dizziness, or headaches. The patient reports no depression, no sleep disturbance, feeling safe in a relationship and no alcohol abuse. Patient reports on fatigue. Reports no runny nose or sinus pressure. No itching, no hives, and no frequent sneezing. PHYSICAL EXAMINATION: GENERAL: Pleasant gentleman, in no acute distress NECK: No JVD or bruit. HEART: Regular. II/ systolic ejection murmur. LUNGS: Good air excursion. CONSULT REPORT [id number] MICKEY TOMLINSON ABDOMEN: Soft, nontender. EXTREMITIES: Pulses are 2+. No edema. DIAGNOSTIC DATA: EKG shows nonspecific ST-T changes. IMPRESSION: Class III angina at this point. PLAN: Plan for diagnostic angiography in the a.m. In the interim, BUN and creatinine of 36 and 1.6. We will give fluids overnight. Further recommendations based on above. TRANSINT:[id number] Voice Confirmation ID: [id number] DOCUMENT ID: [id number] MARY ELLEN LEAVITT MD at 1218 CC: [id number] DICTATION DATE: 08/18/19 1010 CARDIAC CATH LAB RADIOLOGY TECHNOLOGIST: 08/18/19 1232 ADM IN [place] [id number] [place] [address]
[2019-08-19 14:11] VITALS: Ht 172.7 cm; Wt 119.5 kg
[2019-08-19 15:22] VITALS: BP 114/53
[2019-08-19 18:25] LABS: APPEARANCE CLEAR (CLEAR); BILIRUBIN NEGATIVE (NEGATIVE); COLOR YELLOW (YELLOW); GLUCOSE NEGATIVE (NEGATIVE); KETONE NEGATIVE (NEGATIVE); NITRITE NEGATIVE (NEGATIVE); PROTEIN TRACE mg/dL (NEGATIVE); SPECIFIC GRAVITY 1.015 (1.005-1.020); UROBILINOGEN NORMAL (NORMAL)
--- NOTE | 2019-08-19 19:22 | NUR ---
RECEIVED BEDSIDE REPORT. PATIENT IS ALERT AND ORIENTED, SITTING COMFORTABLY IN BED. NO S/S OF DISTRESS. NO C/O PAIN. CALL LIGHT WITHIN REACH. WILL CPOC.
[2019-08-19 20:00] VITALS: BP 98/48
[2019-08-20] VITALS: BP 103/41
[2019-08-20 04:00] VITALS: BP 105/51
[2019-08-20 07:02] LABS: BASOPHILS 0.3 % (0-2); EOSINOPHILS 3.6 % (0-7); HEMATOCRIT 33.6 % (42.0-54.0); HEMOGLOBIN 10.2 g/dL (13.5-17.5); IMMATURE GRANULOCYTES 0.4 % (0-5); MCH 24.5 pg (26.0-34.0); MCHC 30.4 g/dL (31.0-37.0); MCV 80.8 fL (80.0-100.0); MONOCYTES 7.9 % (2-11); NEUTROPHILS 70.8 % (40-80); PLATELET COUNT 261 10x3/uL (130-400); RBC 4.16 10x6/uL (4.20-6.10); RDW 15.7 % (11.5-14.5); WBC 7.6 10x3/uL (4.8-10.8)
[2019-08-20 07:38] LABS: ALBUMIN 3.3 g/dL (3.4-5.0); ANION GAP 11.4 mmol/L (8-16); BILIRUBIN - TOTAL 0.3 mg/dL (0.2-1.3); CALCIUM 8.4 mg/dL (8.5-10.1); MAGNESIUM - SERUM 2.3 mg/dL (1.8-2.4); PROTEIN - SERUM 7.2 g/dL (6.4-8.2)
[2019-08-20 07:41] LABS: CREATININE - SERUM 2.8 mg/dL (0.6-1.3); POTASSIUM - SERUM 4.4 mmol/L (3.5-5.1)
[2019-08-20 07:58] VITALS: BP 99/54
[2019-08-20 11:37] VITALS: BP 117/58
[2019-08-20 15:42] VITALS: BP 107/49
--- NOTE | 2019-08-20 19:30 | NUR ---
RECEIVED BEDSIDE REPORT. PATIENT IS ALERT AND ORIENTED, RESTING COMFORTABLY IN BED. RESPIRATIONS ARE EVEN AND UNLABORED. NO S/S OF DISTRESS. NO C/O PAIN. NORMAL SALINE INFUSING AT 75 ML/HR. CALL LIGHT WITHIN REACH. WILL CPOC.
[2019-08-20 20:27] VITALS: BP 110/43
[2019-08-21 00:56] VITALS: BP 115/59
[2019-08-21 05:19] VITALS: BP 125/58
[2019-08-21 06:08] LABS: BASOPHILS 0.7 % (0-2); EOSINOPHILS 4.2 % (0-7); HEMATOCRIT 31.3 % (42.0-54.0); HEMOGLOBIN 9.5 g/dL (13.5-17.5); IMMATURE GRANULOCYTES 0.2 % (0-5); MCH 24.4 pg (26.0-34.0); MCHC 30.4 g/dL (31.0-37.0); MCV 80.5 fL (80.0-100.0); MEAN PLATELET VOLUME 8.8 fL (7.4-10.4); MONOCYTES 8.6 % (2-11); NEUTROPHILS 65.3 % (40-80); PLATELET COUNT 233 10x3/uL (130-400); RBC 3.89 10x6/uL (4.20-6.10); RDW 15.8 % (11.5-14.5)
[2019-08-21 06:45] LABS: ALBUMIN 2.9 g/dL (3.4-5.0); ANION GAP 11.5 mmol/L (8-16); BILIRUBIN - TOTAL 0.31 mg/dL (0.2-1.3); CALCIUM 7.9 mg/dL (8.5-10.1); CARBON DIOXIDE 28.4 mmol/L (21.0-32.0); CREATININE - SERUM 2.1 mg/dL (0.6-1.3); MAGNESIUM - SERUM 2.6 mg/dL (1.8-2.4); POTASSIUM - SERUM 3.9 mmol/L (3.5-5.1); PROTEIN - SERUM 6.8 g/dL (6.4-8.2)
[2019-08-21 10:38] VITALS: BP 127/56
--- NOTE | 2019-08-21 14:05 | NUR ---
BED REST UP. GROIN STABLE.
--- NOTE | 2019-08-21 15:20 | NUR ---
iv and telemetry dcd. dc plans given. understanding voiced. escorted to car by w/c.
--- NOTE | 2019-08-21 17:46 | MORECARE ---
CASE MANAGEMENT DISCHARGE SUMMARY PATIENT: MICKEY TOMLINSON UNIT: [id number] ADM DATE: 08/17/19 AGE: 73 : 47 SEX: M ROOM/BED: D.2117 AUTHOR: FRANCES BOWMAN PHYSICIAN: REFERRING PHYSICIAN: DREW MICHELLE MD DATE OF SERVICE: 08/21/19 Discharge Plan Patient Name: MICKEY TOMLINSON Facility: [facility]:[place] : 1945 Planned Disposition: Home Anticipated Discharge Date: 08/21/19 Discharge Date: 08/21/2019 Expected LOS: 4 Initial Reviewer: [email or web address] Initial Review Date: 08/21/2019 Generated: 08/21/19 6:45 pm DCPIA - Discharge Planning Initial Assessment Updated by [id number]: Luis Darnell on 08/21/19 5:46 pm * Is the patient Alert and Oriented? Yes * How many steps to enter\exit or inside your home? NONE * PCP DR. WALLACE * Pharmacy [facility] * Preadmission Environment Home with Family * ADLs Independent * Equipment Cane CPAP * Other Equipment [facility] * List name and contact numbers for known caregivers / representatives who currently or will assist patient after discharge: KOURTNEY TOMLINSON, SPOUSE, * Verbal permission to speak to the caregivers and representatives has been obtained from the patient. N/A * Community resources currently utilized None * Please name any agencies selected above. NONE * Additional services required to return to the preadmission environment? No * Can the patient safely return to the preadmission environment? Yes * Has this patient been hospitalized within the prior 30 days at any hospital? No Coverage Notice Reviewer: [email or web address] Laura Cullen Notice Issued Date-Time: 08/17/2019 18:24 Notice Type: Medicare Outpatient Observation Notice Notice Delivered To: Family Member Relationship to Patient: Spouse A/C Technician Name: Kourtney Tomlinson Delivery Method: HAND - Hand Delivered Madelin Days: Prior Verbal Notification: Recipient Understood Notice: Yes Recipient Signature: Yes Med Rec Note Co-signed by Attending: Coverage Notice Comment: HERNÁNDEZ delivered to patient, spouse and signed by spouse, Kourtney. Original given to patient and one placed on chart. Patient Name: MICKEY TOMLINSON Page [phone] at 1746 All edits/amendments must be made on the electronic document DICTATION DATE: 08/21/191744 FUSING MACHINE OPERATOR: NATHANAEL 08/21/191744 RPT#: [id number] DC DATE:08/21/19 STATUS: DIS IN [facility] [address] [place] [address] END OF REPORT
--- NOTE | 2019-08-21 17:54 | MORECARE ---
CASE MANAGEMENT DISCHARGE SUMMARY PATIENT: MICKEY TOMLINSON UNIT: [id number] ADM DATE: 08/17/19 AGE: 73 : 49 SEX: M ROOM/BED: D.7411 AUTHOR: GRACIE,DOC PHYSICIAN: REFERRING PHYSICIAN: DREW MICHELLE MD DATE OF SERVICE: 08/21/19 Discharge Plan Patient Name: MICKEY TOMLINSON Facility: [facility]:[address] : 1945 Planned Disposition: Home Anticipated Discharge Date: 08/21/19 Discharge Date: 08/21/2019 Expected LOS: 4 Initial Reviewer: [email or web address] Initial Review Date: 08/21/2019 Generated: 08/21/19 6:53 pm Comments DCP- Discharge Planning Updated by [id number]: Luis Darnell on 08/21/19 4:[address] Patient Name: MICKEY TOMLINSON Admission Status: ER Accout number: [id number] Admission Date: 08-17-2019 : 1945 Admission Diagnosis: Attending: NAGA Current LOS: 4 Anticipated DC Date: 08-21-2019 Planned Disposition: Home Primary Insurance: [employer] CHOICE PPO MCR ADVANT Discharge Planning Comments: CM MET WITH PT IN ROOM TO DISCUSS DISCHARGE PLANNING AND NEEDS. PT REPORTS LIVING AT HOME INDEPENDENTLY WITH SPOUSE. PT HAS CANE AND CPAP FROM [facility]. PT HAS NO OUTSIDE SERVICES ASSISTING IN THE HOME. CM DISCUSSED AVAILABILITY OF HOME HEALTH, REHAB SERVICES AND MEDICAL EQUIPMENT. PT DENIES DISCHARGE NEEDS, REPORTS HIS WILL PICK HIM UP FOR DISCHARGE HOME. IMPORTANT MESSAGE FROM MEDICARE PROVIDED AND EXPLAINED. UNIT CLERK NURSE NOTIFIED. Box Closing Machine Operator: Luis Darnell DCPIA - Discharge Planning Initial Assessment Updated by [id number]: Luis Darnell on 08/21/19 5:46 pm * Is the patient Alert and Oriented? Yes * How many steps to enter\exit or inside your home? NONE * PCP DR. WALLACE * Pharmacy [facility] * Preadmission Environment Home with Family * ADLs Independent * Equipment Cane CPAP * Other Equipment [facility] * List name and contact numbers for known caregivers / representatives who currently or will assist patient after discharge: KOURTNEY TOMLINSON, SPOUSE, * Verbal permission to speak to the caregivers and representatives has been obtained from the patient. N/A * Community resources currently utilized None * Please name any agencies selected above. NONE * Additional services required to return to the preadmission environment? No * Can the patient safely return to the preadmission environment? Yes * Has this patient been hospitalized within the prior 30 days at any hospital? No Coverage Notice Reviewer: [email or web address] Laura Cullen Notice Issued Date-Time: 08/17/2019 18:24 Notice Type: Medicare Outpatient Observation Notice Notice Delivered To: Family Member Relationship to Patient: Spouse Coremaker Bench Name: Kourtney Tomlinson Delivery Method: HAND - Hand Delivered Madelin Days: Prior Verbal Notification: Recipient Understood Notice: Yes Recipient Signature: Yes Med Rec Note Co-signed by Attending: Coverage Notice Comment: HERNÁNDEZ delivered to patient, spouse and signed by spouse, Kourtney. Original given to patient and one placed on chart. Reviewer: [id number] Laura Darnell Notice Issued Date-Time: 08/21/2019 14:50 Notice Type: IM Discharge Notice Notice Delivered To: Patient Relationship to Patient: Coremaker Bench Name: Delivery Method: HAND - Hand Delivered Madelin Days: Prior Verbal Notification: Recipient Understood Notice: Yes Recipient Signature: Yes Med Rec Note Co-signed by Attending: Coverage Notice Comment: Last DP export: 08/21/19 4:46 p Patient Name: MICKEY TOMLINSON Page [phone] at 1754 All edits/amendments must be made on the electronic document DICTATION DATE: 08/21/191752 TRAILER TECHNICIAN: NATHANAEL 08/21/191752 RPT#: [id number] DC DATE:08/21/19 STATUS: DIS IN [facility] [address] [place] [address] END OF REPORT
== END 2019-08-21 15:21 | disposition home or self-care (01) | DRG 302 ==
LOC: D.ER 13:50 → D.M2 17:42 → D.SDCHOLD 08-20 15:19 → D.M2 08-21 15:21
PROVIDERS: Emergency Medicine; Family Medicine; Internal Medicine Interventional Cardiology; Internal Medicine Nephrology; ADMIT Family Medicine; ATTEND Family Medicine
DX: I25.110 Atherosclerotic heart disease of native coronary artery with unstable angina pectoris (principal); I50.33 Acute on chronic diastolic (congestive) heart failure; N17.9 Acute kidney failure, unspecified; I48.20 Chronic atrial fibrillation, unspecified; I11.0 Hypertensive heart disease with heart failure; E11.9 Type 2 diabetes mellitus without complications; H35.30 Unspecified macular degeneration; M19.90 Unspecified osteoarthritis, unspecified site; D50.9 Iron deficiency anemia, unspecified; Z87.891 Personal history of nicotine dependence

== ENCOUNTER → 2019-10-16 08:02 | Outpatient (CLI) | payer MEDICARE, OTHER ==
[~2019-10-16] VITALS: Ht 172.7 cm; Wt 126.2 kg
--- NOTE | ~2019-10-16 | HEMODYNAMI ---
PATIENT:MICKEY TOMLINSON MEDICAL RECORD: [id number] : 49 LOCATION:D.CAT ADMISSION DATE: 10/16/19 Generatedon:10/16/201911:20 Patient name: MICKEY TOMLINSON Patient #: [id number] SSN: [id number] : 1945 Date of study: 10/16/2019 Page: Of Hemodynamic Procedure Report Patient Data Patient Demographics Procedure consent was obtained First Name: MICKEY Gender: Male Last Name: BUSHRA : 1945 Middle Initial: MARY Age: 73 year(s) Patient #: [id number] Race: SSN: [id number] Additional ID: [id number] Contact details Address: [address] [place] [address] State: [place] City: [place] Zip code: [address] Past Medical History Performed procedures and imaging results Date Procedure Procedure Results Comments 09/17/2019 Stress testing Positive->Intermediate with SPECT MPI risk Allergies Allergen Reaction Date Comments Reported Other allergy 01/18/2017 Bystolic Other allergy 11/28/2018 BYSTOLIC Other allergy 10/16/2019 BYSTOLIC Admission Admission Data Admission Date: 10/16/2019 Admission Time: 8:02 Arrival Date: 10/16/2019 Arrival Time: 0:00 Admit Source: Other Insurance Payor: Medicare [facility] #: [id number] Height (in.): 68 BSA: 2.35 (m2) Height (cm.): 172.72 BMI: 42.3 (kg/m2) Weight (lbs.): 278.18 Weight (kg.): 126.18 Lab Results Lab Result Date: 10/16/2019 Lab Result Time: 0:00 Biochemistry Name Units Result Min Max BUN mg/dl 34 --(----)-* 7 18 Creatinine mg/dl 1.5 --(----)-* 0.6 1.3 eGFR ml/min 49 *-(----)-- 90 120 NONAFRICAN CBC Name Units Result Min Max Hematocrit % 35.7 *-(----)-- 42 54 Hemoglobin g/dl 10.6 *-(----)-- 13.5 17.5 Procedure Procedure Types Cath Procedure Diagnostic Procedure C [facility] w/Coronaries Sedation Charges Moderate Sedation up to 30 minutes PCI Procedure Coronary Stent Coronary Stent Initial Hemochron ACT Test Procedure Description Procedure Date Procedure Date: 10/16/2019 Procedure Start Time: 10:52 Procedure End Time: 11:18 Procedure Staff Name Function Eden Pan RN Web Content Developer Elizabeth Crenshaw RT Monitor Julianna Rivas RT Scrub Josesito Lloyd RN Nurse Russ Hall MD Performing Physician Procedure Data Cath Procedure Fluoroscopy Diagnostic fluoroscopy Total fluoroscopy Time: 7.4 time: 7.4 min min Diagnostic fluoroscopy Total fluoroscopy dose: dose: 1372 mGy 1372 mGy Contrast Material Contrast Material Type Amount (ml) Isovue 370 130 Entry Location Entry Primary Successful Side Size Upsize Upsize Entry Closure Gold ccessful Closure Location (Fr) 1 (Fr) 2 (Fr) Remarks Device Remarks Radial Right 6 Fr Mechanical artery Short Compression Estimated blood loss: 10 ml Diagnostic catheters Device Type Used For End Catheter Placement DIAGNOSTIC [place] 110cm 5 Procedure Fr catheter ([id number]) Procedure Complications No complications Procedure Medications Medication Administration Route Dosage 0.9% NaCl I.V. 100 ml/hr Oxygen etCO2 Nasal cannula 2 l/min Heparin Flush Bag added to field 2 bags (1000units/500ml NS) Lidocaine 2% added to field 20 Radial Cocktail added to field 1 syringe (Verapamil 2mg/Nitro 400mcg/Heparin 1500units) Versed I.V. 1 mg Fentanyl I.V. 50 mcg Radial Cocktail I.A. 1 syringe (Verapamil 2mg/Nitro 400mcg/Heparin 1500units) Versed I.V. 1 mg Fentanyl I.V. 50 mcg Heparin Bolus I.V. 4000 units Hemodynamics Rest BSA: 2.35 (m2) HGB: 10.6 (g/dl) O2 Consumption: Estimated: 256.77 (ml/min) O2 Co nsumption indexed: Estimated:109.26 (ml/min/m) Heart Rate: 54 (bpm) Snapshots Pre Cath Intra NCS Post Cath Vital Signs Time Heart Resp SPO2 etCO2 NIBP (mmHg) Rhythm Pain Sedation Rate (ipm) (%) (mmHg) Status Level (bpm) 10:44:55 55 19 98 17.2 136/67(118) NSR 0 (11) 10(A) , No pain 10:49:17 53 23 97 29.2 135/64(112) NSR 0 (11) 10(A) , No pain 10:54:22 52 14 95 48 121/62(96) NSR 0 (11) 10(A) , No pain 10:58:38 56 15 95 46.5 114/57(96) NSR 0 (11) 10(A) , No pain 11:02:52 56 16 96 48 121/60(95) NSR 0 (11) 10(A) , No pain 11:07:08 56 16 95 44.3 119/63(93) NSR 0 (11) 10(A) , No pain 11:11:26 56 17 96 42.7 119/59(99) NSR 0 (11) 10(A) , No pain 11:15:42 56 22 96 36.7 121/60(105) NSR 0 (11) 10(A) , No pain Medications Time Medication Route Dose Verified Delivered Reason Not es Effectiveness by by 10:42:49 0.9% NaCl I.V. 100 Josesito Josesito Per physician ml/hr Prema Lloyd RN RN 10:42:59 Oxygen etCO2 2 l/min Josesito Josesito for low 02 sats Nasal Lorigan Lorjosé miguel cannula RN RN 10:43:10 Heparin Flush added 2 bags Josesito Josesito used for Bag to Lorigan Lorigan procedure (1000units/500ml [facility] RN RN NS) 10:43:20 Lidocaine 2% added 20ml Josesito Josesito for local to vial Lorigan Lorigan anesthetic field RN RN 10:43:36 Radial Cocktail added 1 Josesito Josesito used for (Verapamil to syringe Lorigan Lorigan procedure 2mg/Nitro field RN RN 400mcg/Heparin 1500units) 10:46:37 Versed I.V. 1 mg Josesito Josesito for sedation Prema Lloyd RN RN 10:46:45 Fentanyl I.V. 50 mcg Josesito Josesito for sedation Prema Lloyd RN RN 10:54:05 Radial Cocktail I.A. 1 Josesito Russ for (Verapamil syringe Lorigan Tauth MD vasodilation 2mg/Nitro RN 400mcg/Heparin 1500units) 10:54:15 Versed I.V. 1 mg Josesito Josesito for sedation Prema Lloyd RN RN 10:54:22 Fentanyl I.V. 50 mcg Josesito Josesito for sedation Prema Lloyd RN RN 11:03:06 Heparin Bolus I.V. 4000 Josesito Josesito for units Prema Lloyd anticoagulation RN pickle sorter Log Time Note 10::46 Informed consent obtained and on chart 10::45 Admit Source: Other 10::47 Procedure Status Elective Heart Cath (OP). 10:27:49 Eden Pan RN sent for patient. Start room use. 10:27:50 Time tracking: Regular hours (M-F 7:00 - 5:00) 10::55 Plan of Care:Hemodynamics will remain stable., Cardiac rhythm will remain stable., Comfort level will be maintained., Respiratory function will remain adequate., Patient/ family verbilizes understanding of procedure., Procedure tolerated without complication., Recovers from procedure without complications.. 10:28:52 Lab Result : Hemoglobin 10.6 g/dl 10::52 Lab Result : eGFR NONAFRICAN 49 ml/min 10::52 Lab Result : BUN 34 mg/dl 10::52 Lab Result : Creatinine 1.5 mg/dl 10::52 Lab Result : Hematocrit 35.7 % 10::55 Arrival Date: 10/16/2019 12:00:00 AM 10:29:01 Insurance Payor : Medicare 10:29:23 Patient Height : 68 inches 10:29:39 Patient Weight : 278.18 lbs 10:32:42 Patient received from Pre/Post Procedure Room to CCL 1 Alert and oriented. Tansferred to table in Supine position. 10:32:43 Warm blankets applied, and zaria hugger turned on for patient comfort. 10:32:44 Correct patient and procedure confirmed by team. 10:32:44 ECG and BP/O2 sat monitors applied to patient. 10:32:54 H&P Date Dictated: 09/17/2019 Within 30 days and on chart.. 10:32:55 Pre-procedure instructions explained to patient. 10:32:56 Pre-op teaching completed and patient verbalized understanding. 10:32:58 Family unavailable. 10:33:00 Patient NPO since Midnight. 10:33:22 Patient allergic to Other allergyBYSTOLIC 10:33:25 Is the patient allergic to Iodine/contrast media? No. 10:33:28 Was the patient premedicated? N/A 10:33:29 Is patient on blood thinner?Yes 10:33:31 ACC The patient was administered the following blood thiners within the last 24 hours: ACCPlavix 10:33:33 Patient diabetic? Yes. 10:33:35 If diabetic: On Metformin? No 10:33:38 ----Pre-sedation anethsthesia assessment.---- 10:33:41 Previous problem with sedation/anesthesia? No ? 10:33:42 Snore? Yes 10:33:43 Sleep apnea? Yes 10:33:48 Deviated septum? No 10:33:50 Opens mouth fully? Yes 10:33:51 Sticks out tongue? Yes 10:33:56 Airway obstruction? No ? 10:33:58 Dentures? No ? 10:34:01 Alarms reviewed by R. N. 10:34:02 Sharps counted by scrub and verified by R.N. 10:34:07 Lab results completed and on chart. 10:34:36 Stress Test: yes; abnormal INFERIOR AND LATERAL 10:35:41 Risk of Mortality: 0.1 10:35:44 Risk of blood transfusion: 1.5 10:35:47 Risk of STARLA: 0.8 10:35:51 Right Radial & Right Groin area was prepped with chlora-prep and draped in sterile fashion 10:35:57 Pre procedure: right dorsailis pedis pulse 1+ Palpable, but thready & weak; easily obliterated 10:36:00 Modified Aldair's test Ulnar < 7 seconds 10:36:02 Patient pain scale 0/10 ?. 10:36:12 IV patent on arrival in left forearm with 0.9% NaCl at [facility]. 10:36:17 Full Disclosure recording started 10:36:25 Use device set Radial Dx or PCI 10:42:49 0.9% NaCl 100 ml/hr I.V. was administered by Josesito Lloyd RN; Per physician; Verbal order read back and verified. 10:42:59 Oxygen 2 l/min etCO2 Nasal cannula was administered by Josesito Lorigan RN; for low 02 sats; Verbal order read back and verified. 10:43:10 Heparin Flush Bag (1000units/500ml NS) 2 bags added to field was administered by Josesito Lloyd RN; used for procedure; Verbal order read back and verified. 10:43:20 Lidocaine 2% 20ml vial added to field was administered by Josesito Lloyd RN; for local anesthetic; Verbal order read back and verified. 10:43:36 Radial Cocktail (Verapamil 2mg/Nitro 400mcg/Heparin 1500units) 1 syringe added to field was administered by Josesito Lloyd RN; used for procedure; Verbal order read back and verified. 10:43:41 Vital chart was started 10:46:01 Baseline sample Acquired. 10:46:04 Rhythm: sinus bradycardia 10:46:15 --------ALL STOP TIME OUT------ 10:46:15 Final Timeout: patient, procedure, and site verified with staff and physician. All members of the team are in agreement. 10:46:17 Right Radial & Right Groin site verified by team. 10:46:21 Fire Safety Assessment: A--An alcohol-based skin anteseptic being used preoperatively., C--Open oxygen or nitrous oxide is being used., D--An ESU, laser, or fiber-optic light is being used. 10:46:27 Physical assessment completed. ASA score P 2 - A patient with mild systemic disease as per Russ Hall MD. 10:46:31 3a) 45-59 Moderately reduced kidney function. 10:46:37 Versed 1 mg I.V. was administered by Josesito Lloyd RN; for sedation; Verbal order read back and verified. 10:46:37 Maximum allowable contrast dose (3.7 X eGFR X 0.75)136 ml. 10:46:42 Sedation plan: IV Moderate Sedation Medication:Versed, Fentanyl 10:46:45 Fentanyl 50 mcg I.V. was administered by Josesito Lloyd RN; for sedation; Verbal order read back and verified. 10:46:58 ACIST Syringe (33938) opened to sterile field. 10:46:59 Medline Cath Pack ([id number]) opened to sterile field. 10:47:00 Bag Decanter (2002) opened to sterile field. 10:47:01 ACIST Hand Control (15899) opened to sterile field. 10:47:02 ACIST Manifold (76138) opened to sterile field. 10:47:02 Tegaderm 4 x 4 (1626W) opened to sterile field. 10:47:06 MBrace Wrist Support ([id number]) opened to sterile field. 10:47:10 EMERALD Guide Wire (491-538) opened to sterile field. 10:47:12 SHEATH 6FR RAIN (3588247) opened to sterile field. 10:51:15 Procedure started. 10:52:08 Local anesthetic to right radial artery with Lidocaine 2% by Russ Hall MD.INITIAL ACCESS ONLY 10:53:27 A 6 Fr Short sheath was inserted into the Right Radial artery 10:54:05 Radial Cocktail (Verapamil 2mg/Nitro 400mcg/Heparin 1500units) 1 syringe I.A. was administered by Russ Hall MD; for vasodilation; Verbal order read back and verified. 10:54:15 Versed 1 mg I.V. was administered by Josesito Lloyd RN; for sedation; Verbal order read back and verified. 10:54:16 A DIAGNOSTIC [place] 110cm 5 Fr catheter ([id number]) was advanced over the wire and used for Procedure. 10:54:22 Fentanyl 50 mcg I.V. was administered by Josesito Lloyd RN; for sedation; Verbal order read back and verified. 10:55:07 LV gram done using TALLEY 10:55:10 Injector settings: Ml/sec: 5, Volume: 15, 10:55:13 EF : 50 % 10:57:01 UNABLE TO CANNULATE WITH JL4, CATHETER EXCHANGED OVER WIRE.. 10:58:09 GUIDE 6FR XBLAD 3.5 catheter ([id number]) opened to sterile field. 10:58:20 6 Fr XBLAD 3.5 guide catheter was inserted over the wire 10:58:30 RCA angiography performed. 10:58:34 Injector settings: Ml/sec: 3, Volume: 6, 10:59:15 LCA angiography performed. 10:59:36 Injector settings: Ml/sec: 3, Volume: 6, 10:59:40 ACCDominant side:Right 11:00:22 Use device set TAU PCI 11:00:40 Proceeding to intervention. 11:00:44 INFLATOR Merit BasixCompak (TL4352) opened to sterile field. 11:00:58 CHOICE PT Extra Support 182cm wire ([id number]) opened to sterile field. 11:01:36 CHOICE ES 182 wire advanced. 11:02:44 Pre PCI Site: [place] Circ has 90% stenosis. 11:03:06 Heparin Bolus 4000 units I.V. was administered by Josesito Lloyd RN; for anticoagulation; Verbal order read back and verified. 11:03:26 Inflate balloon Inflation number: 1 A EUPHORA 2.5 x 15 Balloon ([id number]) was prepped and advanced across the Mid CX , then inflated to 19 ALIDA for 0:00 (min:sec) . 11:03:51 Balloon removed over the wire. 11:03:52 Wire removed. 11:06:25 The ANTONI RX 3.0 x 12 stent ([id number]) was advanced then removed because of failure to cross lesion 11:07:44 The ANTONI RX 4.0 x 18 stent ([id number]) was advanced then removed because of failure to cross lesion 11:08:52 Inflation number: 2 The EUPHORA 2.5 x 15 Balloon ([id number]) was reinflated across the Mid CX , to 21 ALIDA for 0:00 (min:sec) . 11:09:02 Inflation number: 3 The EUPHORA 2.5 x 15 Balloon ([id number]) was reinflated across the Mid CX , to 21 ALIDA for 0:00 (min:sec) . 11:09:14 Balloon removed over the wire. 11:10:59 Place stent Inflation Number: 4 A ANTONI RX 3.0 x 12 stent ([id number]) was prepped and advanced across the Mid CX . The stent was deployed at 17 ALIDA for 0:00 (min:sec) . 11:11:06 Stent catheter was removed intact over wire. 11:12:21 Place stent Inflation Number: 1 A ANTONI RX 4.0 x 18 stent ([id number]) was prepped and advanced across the Prox CX . The stent was deployed at 17 ALIDA for 0:00 (min:sec) . 11:13:11 Stent catheter was removed intact over wire. 11:13:19 Wire removed. 11:13:33 Guide catheter removed. 11:13:40 ZEPHYR REGULAR TR BAND (065395) opened to sterile field. 11:14:02 Sheath removed intact; hemostasis achieved with Mechanical Compression to the Right Radial artery. 11:14:04 Procedure ended.(Physican Out) 11:15:07 Fluoroscopy time 07.40 minutes. 11:15:11 Fluoroscopy dose: 1372 mGy 11:15:11 Flurop Dose total: 1372 11:15:17 Dose Area Product 48915 mGy/cm. 11:15:24 Contrast amount:Isovue 370 130ml. 11:15:28 Maximum allowable dose exceeded? No. 11:15:29 Sharps counted by scrub and verified by R.N. 11:15:32 [place]ada band inflated with 10cc of air. 11:15:34 Post Procedure Pulses reassessed and unchanged 11:15:37 Post procedure: right dorsailis pedis pulse 1+ Palpable, but thready & weak; easily obliterated. 11:15:41 Post-procedure physical assessment completed. ASA score P 2 - A patient with mild systemic disease as per Russ Hall MD. 11:15:44 Post procedure rhythm: unchanged. 11:15:47 Estimated blood loss: 10 ml 11:15:49 Post procedure instruction explained to patient.Patient verbalizes understanding. 11:15:50 Patient needs reinforcement of post procedure teaching. 11:16:24 Procedure type changed to Cath procedure, Diagnostic procedure, LHC, [facility] w/Coronaries, Sedation Charges, Moderate Sedation up to 30 minutes, PCI procedure, Coronary Stent, Coronary Stent Initial, Hemochron ACT Test 11:16:25 ACT drawn and resulted at 207 seconds. (normal therapeutic range 180-240 seconds). 11:17:52 Procedure and supply charges have been captured, reviewed, submitted and are correct. 11:17:56 Procedure Complication : No complications 11:17:59 Vital chart was stopped 11:18:00 [facility] Findings: MVD- PCI performed (see procedure note) 11:18:03 Operative report dictated upon procedure completion. 11:18:04 See physician's report for complete and final results. 11:18:06 Report given to Pre/Post Procedure Room. 11:18:09 Patient transfered to Pre/Post Procedure Room with Stretcher. 11:18:11 Procedure ended. 11:18:11 Full Disclosure recording stopped 11:18:30 ACC-PCI Only Patient was given prescriptions, or instructed by Russ Hall MD to start/continue the following medications upon discharge: Plavix 11:18:32 End room use (Document Last) 11:18:46 End room use (Document Last) 11:20:16 End room use (Document Last) Intervention Summary Intervention Notes Time ActionType Lesion and Equipment Used Action# Pressure Duration Attributes 11:03:26 Inflate Mid CX EUPHORA 2.5 x 1 19 00:00 balloon 15 Balloon ([id number]) 11:06:25 Discard ANTONI RX 3.0 x Stent 12 stent ([id number]) 11:07:44 Discard ANTONI RX 4.0 x Stent 18 stent ([id number]) 11:08:52 Reinflate Mid CX EUPHORA 2.5 x 2 21 00:00 balloon 15 Balloon ([id number]) 11:09:02 Reinflate Mid CX EUPHORA 2.5 x 3 21 00:00 balloon 15 Balloon ([id number]) 11:10:59 Place stent Mid CX ANTONI RX 3.0 x 4 17 00:00 12 stent ([id number]) 11:12:21 Place stent Prox CX ANTONI RX 4.0 x 1 17 00:00 18 stent ([id number]) Device Usage Item Name Manufacture Quantity Catalog Number [facility] Part Current M inimal Lot# / Charge Number Stock Stock Serial# Code ACIST Syringe Acist 1 68448 977749 643019 642885 2 0 (55675) Medical Systems Inc Medline Cath Medline 1 [id number] 359918 39069 566637 5 Pack ([id number]) Bag Decanter Microtek 1 384044 91456 419807 5 () Medical Inc. ACIST Hand Acist 1 52994 955508 675009 194826 5 Control Medical (23373) Systems Inc ACIST Manifold Acist 1 74116 086267 954134 419033 5 (86288) Medical Systems Inc Tegaderm 4 x 4 3M 1 1626W 935379 459921 861695 5 (1626W) MBrace Wrist Advanced 1 140-0250-00 895658 72326 869787 5 Support Vascular (314372022) Dynamics EMERALD Guide Cardinal 1 441-704 060176 356169 553655 5 Wire (683-982) Health SHEATH 6FR Cardinal 1 9005341 561797 9183079 730449 5 RAIN (9403532) Health DIAGNOSTIC Terumo 1 40-5013 465688 640014 808512 5 [place] 110cm 5 Fr catheter (587737) GUIDE 6FR Cardinal 1 02004575 506547 023022 440479 1 0 XBLAD 3.5 Health catheter (94834686) INFLATOR Merit Merit 1 XF6103 894889 619826 226645 1 5 DataRank ([id number]) CHOICE PT [place] 1 [id number] 043162 355879 778073 5 Extra Support Scientific 182cm wire ([id number]) EUPHORA 2.5 x Medtronic 1 [id number] 890888 841539 523372 5 [id number] 15 Balloon ([id number]) ANTONI RX 3.0 x Medtronic 1 [id number] 447287 5717810 067629 5 [id number] 12 stent ([id number]) ANTONI RX 4.0 x Medtronic 1 [id number] 589111 5139568 251371 5 [id number] 18 stent ([id number]) ZEPHYR REGULAR Cardinal 1 375472 755973 1686728 952781 5 [facility] Kojami ([id number]) Signature Audit [place] Stage Time Signature Unsigned Intra-Procedure 10/16/2019 Elizabeth Crenshaw 11:18:46 AM RT(R) Intra-Procedure 10/16/2019 Josesito 11:20:17 AM Prema MCKEON Intra-Procedure 10/16/2019 Russ Hall 11:20:29 AM [facility] [address] [place] [address]
[~2019-10-16 08:02] MED LIST changes: +FUROSEMIDE40 MG PO; +ZOCOR40 MG PO
[2019-10-16 08:49] VITALS: BP 140/56; Ht 172.7 cm; Wt 126.2 kg
[2019-10-16 09:06] LABS: CALCIUM 8.6 mg/dL (8.5-10.1); CARBON DIOXIDE 26.3 mmol/L (21.0-32.0); CHOL - HDL RATIO 2.4 ratio (2.3-4.9); CREATININE - SERUM 1.5 mg/dL (0.6-1.3); LDL-HDL RATIO 1.2 ratio (1.5-3.5); POTASSIUM - SERUM 4.3 mmol/L (3.5-5.1)
[2019-10-16 09:27] LABS: BASOPHILS 0.5 % (0-2); EOSINOPHILS 3.5 % (0-7); HEMATOCRIT 35.7 % (42.0-54.0); HEMOGLOBIN 10.6 g/dL (13.5-17.5); IMMATURE GRANULOCYTES 0.2 % (0-5); MCH 23.6 pg (26.0-34.0); MCHC 29.7 g/dL (31.0-37.0); MCV 79.5 fL (80.0-100.0); MONOCYTES 8.3 % (2-11); NEUTROPHILS 67.5 % (40-80); PLATELET COUNT 207 10x3/uL (130-400); RBC 4.49 10x6/uL (4.20-6.10); RDW 19.4 % (11.5-14.5); WBC 5.6 10x3/uL (4.8-10.8)
--- NOTE | 2019-10-16 11:35 | NUR ---
REC TO ROOM VIA STRETCHER FROM LAB. MONITORING INITIATED. R WRIST ZBAND INTACT, RADIAL PULSE PALPABLE ABOVE AND BELOW BAND. REQ URINAL, PROVIDED AND ASSISTED W POSITIONING. ICEWATER ALSO PROVIDED. INSTRUCTED TO LET RIGHT HAND REST. VERBALIZES UNDERSTANDING.
--- NOTE | 2019-10-16 12:00 | NUR ---
R WRIST W ZBAND, INTACT, NO S/S BLEEDING OR HEMATOMA. TOLERATING DIET. BP 124/56, HR SB OCC PVC 51, SAT 99% 2LNC, RR 14. AT BEDSIDE.
--- NOTE | 2019-10-16 12:45 | NUR ---
R WRIST ZBAND INTACT, RADIAL PULSE PALPABLE. NO S/S BLEEDING OR HEMATOMA. BP 129/51, SB 53, RR 18, SAT 96 ON 2LNC
--- NOTE | 2019-10-16 13:15 | NUR ---
R WRIST Z BAND INTACT, NO S/S BLEEDING OR HEMATOMA. AT BEDSIDE
--- NOTE | 2019-10-16 13:45 | NUR ---
R WRIST ZBAND INTACT, NO S/S BLEEDING OR HEMATOMA. VOIDING FREELY IN URINAL. BP 126/54, SB 51, SAT 94%2LNC.
--- NOTE | 2019-10-16 14:15 | NUR ---
2ML AIR RELEASED FROM ZBAND. NO S/S BLEEDING OR HEMATOMA NOTED. BP 141/66, SB 48. AT BEDSIDE.
--- NOTE | 2019-10-16 14:30 | NUR ---
2ML AIR RELEASED FROM ZBAND, TOTAL 4ML OUT. NO S/S BLEEDING OR HEMATOMA R WRIST.
--- NOTE | 2019-10-16 14:45 | NUR ---
6ML TOTAL OUT, ZBAND DEFLATED. NO S/S BLEEDING OR HEMATOMA R WRIST. IV DC, TIP INTACT. MONITORING DC. PT DRESSING WITH 'S ASSIST.
--- NOTE | 2019-10-16 15:25 | NUR ---
DISCHARGE INSTRUCTIONS REVIEWED W PT AND . PT DC HOME VIA WHEELCHAIR TO PRIVATE CAR W . PT HAS ALL BELONGINGS.
--- NOTE | 2019-10-25 11:26 | OP ---
PATIENT NAME: MICKEY TOMLINSON MEDICAL RECORD: [id number] :49 LOCATION:D.CAT ADMISSION DATE: SURGEON: EMANI BHAT MD DATE OF OPERATION: 10/16/2019 DATE OF SERVICE: 10/16/2019 PROCEDURES: 1. PTCA stent left circumflex. 2. Left heart catheterization. 3. Selective coronary angiography. 4. Left ventriculogram. INDICATION: Angina and coronary artery disease. PROCEDURE PERFORMED: After informed consent was obtained and after a detailed description of risks, benefits as well as alternative therapies, the patient elected to CT angiogram and angioplasty. The right radial area was prepped and draped in normal sterile fashion. Right radial artery was cannulated via modified Seldinger technique with placement of 6-Micronesian sheath. All catheters exchanged through this sheath. FINDINGS: The left ventriculogram was performed in standard 30-degree TALLEY view, reveals good cardiac wall motion throughout all segments. Overall ejection fraction estimated at 60%. SELECTIVE CORONARY ANGIOGRAPHY: 1. Left main is with no significant angiographic disease. 2. Left anterior descending has previously placed stents, these are widely patent with no significant restenosis. No significant disease elsewise throughout the LAD or its branches. 3. The left circumflex has a 90% stenosis at the ostium followed by 80% to 90% stenosis in the mid vessel. 4. The right coronary artery has mild irregularities, but no flow-limiting stenosis. PTCA STENT OF THE LEFT CIRCUMFLEX: The mid vessel was addressed with a 3.0 x 12 and the ostium with a 4.0 x 8, both Lincoln stents. Result was 0% residual stenosis. OVERALL IMPRESSION: Successful percutaneous transluminal coronary angioplasty stent of the left circumflex going from 80% to 90% initial stenosis to 0% residual. TRANSINT:[id number] Voice Confirmation ID: [id number] DOCUMENT ID: [id number] EMANI BHAT MD at 1126 CC: [id number] DICTATION DATE: 10/23/19 1106 COMPUTATIONAL SCIENTIST: 10/23/19 1412 DEP CLI 10/16/19 [id number] [place] [address]
== END | disposition home or self-care (01) ==
LOC: D.CATH 08:02
PROVIDERS: ATTEND Internal Medicine Interventional Cardiology
DX: I25.119 Atherosclerotic heart disease of native coronary artery with unspecified angina pectoris (principal); R07.9 Chest pain, unspecified; I48.0 Paroxysmal atrial fibrillation; R06.09 Other forms of dyspnea; I10 Essential (primary) hypertension; E78.5 Hyperlipidemia, unspecified
CPT/HCPCS: 93458; C9600

== ENCOUNTER 2020-03-27 04:31 | Emergency (ER) | payer MEDICARE, OTHER ==
[2019-10-16 08:49] VITALS: Ht 172.7 cm; Wt 133.6 kg
[~2020-03-27] VITALS: Ht 172.7 cm; Wt 133.6 kg
[2020-03-27 04:37] VITALS: BP 166/70
== END 2020-03-27 05:15 | disposition home or self-care (01) ==
LOC: D.ER 04:31
DX: L29.9 Pruritus, unspecified (principal); F41.9 Anxiety disorder, unspecified; E11.9 Type 2 diabetes mellitus without complications; I10 Essential (primary) hypertension; Z79.84 Long term (current) use of oral hypoglycemic drugs